=== PATIENT | male | born 1965 | race Caucasian/White ===

== ENCOUNTER 2024-05-20 17:11 | Inpatient (IN) | payer MEDICARE, SELFPAY ==
[2024-05-20 12:26] VITALS: BP 147/102
[2024-05-20 12:59] LABS: % Eosinophils 2.9 % (0-6); % Immature Granulocytes 0.2 % (0-0.5); % Lymphocytes 21.1 % (20.5-51.1); % Monocytes 7.4 % (1.7-9.3); % Neutrophils 67.4 % (42.2-75.2); Absolute Basophils 0.1 10^3/uL (0-0.2); Absolute Eosinophils 0.3 10^3/uL (0-0.7); Absolute Lymphocytes 2.1 10^3/uL (1.2-3.4); Absolute Monocytes 0.7 10^3/uL (0.1-0.6); Absolute Neutrophils 6.7 10^3/uL (1.4-6.5); Hematocrit 46.9 % (39.0-52.0); Hemoglobin 15.7 g/dL (13.0-18.0); Mean Corp Hgb Conc. 33.5 g/dL (33.0-37.0); Mean Corpuscular Hgb 28.4 pg (27.0-31.0); Mean Platelet Volume 9.3 fL (7.4-10.4); Nucleated Red Blood Cells % 0 % (-); Platelet Count 291 10^3/uL (130-400); Red Blood Cell Count 5.52 10^6/uL (4.70-6.10); Red Cell Dist. Width 12.9 % (11.5-14.5)
[2024-05-20 13:11] LABS: ALT (SGPT) 31 U/L (0-50); AST (SGOT) 28 U/L (17-59); Albumin 4.5 g/dl (3.5-5.0); Alkaline Phosphatase 88 U/L (38-126); Blood Urea Nitrogen 16 mg/dl (9-20); Calcium 10.1 mg/dl (8.4-10.2); Carbon Dioxide 35 mmol/L (22-30); Chloride 96 mmol/L (98-107); Glucose 112 mg/dl (70-99); Potassium 5.1 mmol/L (3.5-5.1); Sodium 138 mmol/L (135-145); Total Bilirubin 0.6 mg/dl (0.2-1.3); eGFR > 60.00
[2024-05-20 13:21] LABS: Troponin I < 0.012 ng/ml
[2024-05-20 13:29] VITALS: BP 173/120
[2024-05-20 14:06] VITALS: BP 160/117
--- NOTE | 2024-05-20 14:28 | ED.GENMED ---
History of Present Illness
General
Chief Complaint: Breathing Problem
Source: patient
Exam Limitations: none
Time Seen by Provider: 05/20/24 13:40
Nursing documentation reviewed up to this point in time: agreed with
History of Present Illness
History of Present Illness:
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
h pylori
does not go to doctor's
says he has had episodes of dyspnea off and on with exertion since 2020
he has only seen someone once, it sounds like, and did not find cause for symptoms
pt hd to be redirected several times to discuss why he decided to come today but ultimately he is here bcause over the past 10 days specifically he is extremely winded with exertion
he has not been able to lay flat at night
he used to smoke cigarettes but quit in 2018
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
recovers aftre resting
he has no wheezing, cough, fever, painful breathing
he has not had recen tillness
he has had about 20 pound weight loss in 18 mo, sounds like this is mostly unintentional
pt uses a lot of herbs and eastern medicine
Phy Exam
Physical Exam
Physical Exam:
GENERAL: Alert , in no apparent distress thin
EYE: pupils equal and reactive
NECK: Supple
ENT: o/p clr, mmm.
CARDIAC: Regular rate and rhythm .
LUNGS: Initially clear, no tachypnea, speaking in full sentences, no cough
after ambulation trial patient was moderately dyspneic on conversation and wheezing with diminished airflow
ABDOMEN: Soft, without focal tenderness, no r/g, no cvat, normal bowel sounds
NEUROLOGICAL: Alert and oriented, no focal neuro deficits
SKIN: Warm and dry, skin intact.
MUSCULOSKELETAL: No edema, well perfused. neg vishal's sign
PSYCH: Normal and appropriate interaction.
Scores
Heart Failure Risk
Heart Failure Risk Score: Not Applicable
Course
Orders/Labs/Results
Orders:
Orders
05/20/24 Breakfast
Regular
At Your Request: Full Participation
Does patient need a safe tray?: No
05/20/24 12:21
Electrocardiogram (*1) Urgent
Reason for Study: Shortness of Breath
EKG- Treatment ONCE
05/20/24 12:42
Complete Blood Count/With Diff Urgent
Comprehensive Metabolic Panel Urgent
NT-proBNP Urgent
Comment: ADD ON
Troponin I Urgent
05/20/24 12:52
CR Chest - 2 Views Urgent
Comment:
Reason For Exam: soob
05/20/24 13:54
Add On- LAB Urgent
Tests Added?: BNP
05/20/24 14:12
Peak Flow Rate [RESP] Urgent
Quantity: 1
05/20/24 14:20
Ipratropium/Albuterol Sulfate [Duoneb] 3 ml INH R NOW STA
05/20/24 14:54
Dexamethasone Sod Phosphate [Decadron] 10 mg IV NOW STA
05/20/24 15:31
Ipratropium/Albuterol Sulfate [Duoneb] 3 ml INH R NOW STA
05/20/24 16:16
Admit/Transfer Patient As Directed
Co-Sign Provider:
Level of Care: Inpatient admission
Assign to:: Medical/Surgical
Physician / Group: home
Diagnosis: COPD exacerbation
Reason for Hospitalization: copd exacerbation
Expected length of stay greater than two midnights?: Yes
ELOS- Estimated Length of Stay in days: 3
I certify the patient meets the requirements for IP care: Yes
Code Status As Directed
Resuscitation Status: Full Code
PRN Pain Medication Management As Directed
May give lesser potent ordered pain med per pt: Yes
preference::
Protocol:: Medication orders for pain may be administered in a
manner that supports deferring to patient preference
when the pt is:
- Requesting an ordered lesser potent pain medication.
Least to most potent pain medications are defined
as: acetaminophen < NSAID < tramadol < opioids
(morphine, oxycodone, hydromorphone).
- Requesting a lesser dose of the same medication IF
ORDERED.
- Requesting a less intrusive route of administration
if both routes are prescribed by the provider (PO <
IV).
05/20/24 16:35
PULMONARY CONSULT Routine
Consulting Provider: Mitch Boswell
Was physician already notified: Yes
05/20/24 17:59
Acetaminophen [Tylenol] 650 mg PO Q4HPRN PRN
HydrALAZINE [Apresoline] 5 mg IV Q6HPRN PRN
Ipratropium/Albuterol Sulfate [Duoneb] 3 ml INH R Q4HPRN PRN
05/20/24 17:59
Activity As Directed
Activity Level: As Tolerated
Intake/ Output As Directed
Frequency: Per unit guidelines
Vital Signs As Directed
Frequency: Per unit guidelines
Copd Education [RESP] Routine
DX Deep Vein Thrombosis Video Routine
05/20/24 18:00
Enoxaparin Sodium [Lovenox] 40 mg SC QPM
05/20/24 20:00
Ipratropium/Albuterol Sulfate [Duoneb] 3 ml INH R QID
05/20/24 23:00
Dexamethasone Sod Phosphate [Decadron] 4 mg IV Q8H
Abnormal Lab Results
05/20/24
12:42
Absolute Neuts (auto) 6.7 H 10^3/uL
(1.4-6.5)
Absolute Monos (auto) 0.7 H 10^3/uL
(0.1-0.6)
Chloride 96 L mmol/L
(98-107)
Carbon Dioxide 35 H mmol/L
(22-30)
Glucose 112 H mg/dl
(70-99)
05/20/24 12:42
05/20/24 12:42
Vital Signs
Initial and Last Documented VS:
Initial Vital Signs
Temp Pulse Resp BP Pulse Ox
98.3 F 106 18 147/102 98
05/20/24 12:26 05/20/24 12:26 05/20/24 12:26 05/20/24 12:26 05/20/24 12:26
Last Documented Vital Signs
Temp Pulse Resp BP Pulse Ox
98 F 104 16 145/82 93
05/21/24 07:15 05/21/24 11:24 05/21/24 11:24 05/21/24 07:15 05/21/24 11:24
MDM/Problems Addressed
Differential Diagnosis Includes:
copd, chf
MDM/Problems Addressed:
room [facility] is [facility]
58 y/o M
legally blind
doesn't have PCP
10 days HOWELL, PND, cannot exert self without stopping
no dx of COPD; former smoker
looks like COPD
hypertesnive 160/100 but not hypoxic at rest, looks well
peak flow diminished 150 pre-treatment; post was 200
ambulated pt after neb and steroids and he became tachypneic and dyspneic and wheezy; getting 2nd treatment;
*Critical Care Note
Total Time (30-74mins, 75-104mins- exclusive of procedures): Not Applicable
ED Attending Note
-
Portions of this chart may have been created with voice recognition software.� Occasional wrong word or��sound alike� substitutions may have occurred due to the inherent limitations of voice recognition software.
Discharge Plan
Departure
Patient Disposition: Admit
Date of Disposition: 05/20/24
Time of Disposition: 15:31
Admit to: Med/Surg and Telemetry
Presentation/result/management discussed w/ accepting MD/DO: Hospitalist
Condition: Fair
Covid-19: Not Applicable
Discharge Problem:
COPD (chronic obstructive pulmonary disease)
Interventions
Interventions:
*Risk Screen - Suicide Last Done: 05/20/24 12:26
*General Assessment Last Done: 05/20/24 12:26
*Neglect/Abuse Screening Last Done: 05/20/24 12:26
*ED COVID-19 Vaccine History Last Done: 05/20/24 18:09
*Nursing Disposition Last Done: 05/20/24 18:01
ED- Cardiac Assessment Last Done: 05/20/24 13:30
ED- Pulmonary Assessment Last Done: 05/20/24 13:30
Discharge Date and Time
Discharge Date/Time: 05/20/24 18:01
[2024-05-20 14:35] LABS: NT-proBNP 39.8 pg/ml
[2024-05-20] MEDS: DUONEB 3 ML INH ×3 (14:40→19:54)
[2024-05-20 15:00] VITALS: BP 144/105
--- NOTE | 2024-05-20 15:55 | HPS.HSE ---
Addendum entered and electronically signed by Blair Siddiqi DO 05/20/24 17:46:
Gen-AAOx3, NAD
HEENT-NC, AT, anicteric, clear oral mm
Neck-supple
CV-reg, no M, +S1/S2
Lungs-clear B/L
Abd-soft, NT, ND
Musculoskeletal-no edema, no deformity
Skin-warm and dry
Neuro-grossly non-focal
Psych-calm, cooperative
Mr. 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 pylori (reportedly treated 2014 x 2, no follow-up), and [id number] former smoker (quit 25 years ago) who presented with progressively
worsening shortness of breath for many years but with significant worsening of symptoms over the past 10 days prior to arrival. He reports having never been evaluated by membership assistant. He also reports approximate 20 pound weight loss in the past
18 months which is unintentional although he does try to work out and stay fit. 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 He has a twin
brother who also has blindness due to Stargardt's disease. 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 He reports poor
medical follow-up due to insurance issues and because he has moved around so frequently.
In the ED, he was found to be bronchospastic and hypertensive. He was not hypoxic. Chest imaging showed hyperinflated lungs. Labs were remarkable for elevated serum bicarb consistent with suspected undiagnosed COPD. He was given steroids and
nebulizer treatments. He has been admitted for further evaluation and management of bronchospasm likely due to undiagnosed COPD.
Bronchospasm:
-Suspect undiagnosed COPD continue scheduled steroids and nebulizer treatments
-Additional nebulizers as needed
-Consult to pulmonology
Hypertension:
-Not on antihypertensive regimen as an outpatient
-If persistently hypertensive after controlling respiratory symptoms we will consider adding blood pressure medications
CODE STATUS: Full code
Original Note:
Family Physician
-
Family Physician: Simone Bartlett
Chief Complaint
-
sob
History of Present Illness
58 y/o legally blind,h pylori,Stargardt disease,macular degeneration presented to us with worsening of sob for past ten days. patient stated HOWELL, as well as orthopnea. patient can only lay on his left side to sleep. denied cough, fever, chills,
congestion. patient stated mid gastric, under ribs pain. complained of upper back pain. his neck has been bothering him recently.he has had about 20 pound weight loss in 18 mo, sounds like this is mostly unintentional but his oral intake has been
decreased. Patient denied headache or dizzy or syncope. Patient denied any abdominal pain, nausea, vomiting or diarrhea. Patient denied dysuria or hematuria.
Chest x-ray with COPD. Patient received nebulizer treatment and Decadron in ER. Admitted for further management
Medical History
Past Medical History
Past Medical History: Reports Other
Additional Past Medical History:
H. pylori
Broken jar
Legally blind
Stargardt disease
Macular degeneration
Past Surgical History: Reports Other
Additional Past Surgical History:
History of left hip surgery for fatty removal
Social History
Tobacco: Former Smoker
Alcohol: None
Drug: None
Personal: Single
Living: With Family
Family History
Family History: Not pertinent
Allergies / Home Medications
Allergies reflects when Allergies were last updated in [employer].
Home Medications with original date entered in [employer]
Allergy/Medication List:
Home Medications Table - record
�Medication �Instructions �Recorded �Confirmed
epinephrine 0.125 mg/actuation 1 puff inhalation R HSPRN PRN sob 05/20/24 05/20/24
aerosol inhaler (Primatene Mist)
ibuprofen 200 mg tablet 200 mg PO Q6HPRN PRN mild 05/20/24 05/20/24
pain/fever
Review of Systems
-
Constitutional: Reports No Symptoms
EENT: Reports No Symptoms
Respiratory: Reports Trouble Breathing
Cardiac: Reports No Symptoms
Abdomen/GI: Reports No Symptoms
: Reports No Symptoms
Musculoskeletal: Reports No Symptoms
Skin: Reports No Symptoms
Neurological: Reports No Symptoms
Endocrine: Reports No Symptoms
Hematologic/Lymphatic: Reports No Symptoms
Psych: Reports No Symptoms
Physical Exam
Vital Signs
Vital Signs
Temp Pulse Resp BP Pulse Ox
98.3 F 101 16 160/117 96
05/20/24 12:26 05/20/24 14:30 05/20/24 14:30 05/20/24 14:06 05/20/24 14:30
Physical Exam
General: Well Developed, Well Nourished and No Apparent Distress
HEENT: NormoCephalic, Moist mucous membranes and Atraumatic
Respiratory: Clear
Cardiac: S1/S2 and Regular Rhythm; No Murmur or Rub
GI: Soft, Non Tender, Non Distended and Normal Bowel Sounds; No Organomegaly
Rectal: Deferred by Provider
Musculoskeletal: No Clubbing, No Cyanosis and No Edema
Skin: No Rash
Neuro: AO x 3 and Nonfocal/grossly intact
Psych: Calm
Laboratory Results
-
05/20/24 12:42
05/20/24 12:42
Laboratory Results
Total Bilirubin 0.6 mg/dl (0.2-1.3) 05/20/24 12:42
AST 28 U/L (17-59) 05/20/24 12:42
ALT 31 U/L (0-50) 05/20/24 12:42
Alkaline Phosphatase 88 U/L (38-126) 05/20/24 12:42
Troponin I < 0.012 ng/ml 05/20/24 12:42
Data Reviewed
-
Diagnostic Radiology: Report Reviewed by me
Lab Data: Labs Reviewed by me
Impression/Plan
-
# Dyspneic on exertion likely COPD exacerbation
-Chest x-ray with no focal airspace disease or pleural effusion. Hyperexpanded lungs which can be associated with air trapping/COPD
-IV steroids
-Nebs as needed short of breath and wheezing
-Consider supplemental oxygen to keep sat greater than 92
-Wean as tolerated
#weight loss likely from Cachexia from COPD
-encourage oral intake
# Hypertensive emergency
-will add hydralazine prn
# History of Stargardt disease
#legally blind
#DVT Prophylaxis
-Lovenox
#CODE status
-full code
[2024-05-20] MEDS: DECADRON 10 MG IV (16:00)
--- NOTE | 2024-05-20 17:12 | CON.PUL ---
Consultation
Consultation Request
Date/Time Consultation Requested: 05/20/2024
Date/Time Consultation Performed: 05/20/2024
Requesting Provider: Kiley Cartwright
Performing Provider: Dr. Mitch Sandoval
Reason for Consultation: Acute exacerbation of COPD
Medical History
-
History of Present Illness:
58-year-old legally blind with history of H. pylori, Stargardt's disease, macular degeneration presented to us with worsening shortness of breath for the past 10 days. Patient reports orthopnea and shortness of breath with exertion. Denies cough,
fevers, chills, congestion. He did report some upper back pain. He does report 20 pound weight loss for the last 18 months.
Oral intake has decreased.
Patient is a former smoker
Chest x-ray showed hyperinflation.
Admitted through the hospitalist service for possible COPD exacerbation. We were consulted on 05/20/2024 from the emergency room for evaluation of this patient.
Patient does report progressive shortness of breath over the last 2 years. Slowly worsening. Over the last 2 days has been worse. Dyspneic with any activity.
He is legally blind. Used to exercise. Has been losing weight.
He does not have a formal diagnosis of COPD. He quit smoking years ago. He has at least [id number] history.
Past Medical History
Past Medical History: Other (See assessment and plan)
Social History
Tobacco: Former Smoker
Alcohol: None
Drug: None
Personal: Single
Living: With Family
Family History
Family History: Reviewed & Not Pertinent
Allergies / Home Medications
Allergies
Allergy/AdvReac Type Severity Reaction Status Date / Time
No Known Allergies Allergy Unverified 05/20/24 12:26
Home Medications
�Medication �Instructions �Recorded �Confirmed �Last Taken �Type
epinephrine 0.125 mg/actuation 1 puff inhalation R HSPRN PRN sob 05/20/24 05/20/24 Unknown History
aerosol inhaler (Primatene Mist)
ibuprofen 200 mg tablet 200 mg PO Q6HPRN PRN mild 05/20/24 05/20/24 Unknown History
pain/fever
Review of Systems
-
History Source: Patient
All other systems: Negative unless noted
Vitals / Labs / Diagnostic Testing
Vital Signs
Temp Pulse Resp BP Pulse Ox
98.3 F 89 15 144/105 94
05/20/24 12:26 05/20/24 15:45 05/20/24 15:45 05/20/24 15:00 05/20/24 15:45
Lab Data
05/20/24 12:42
05/20/24 12:42
Diagnostic Testing:
Physical Exam
-
HEENT: Normocephalic
Cardiovascular: S1/S2
Respiratory: Clear and Non-Labored Respirations
GI: Soft and Non Distended
Neurology: Awake, Oriented and No Motor Deficits
Skin: Warm
General: Comfortable
Assessment
-
58-year-old man with past medical history noted, former smoker. Legally blind. Came to the hospital complaining of shortness of breath without any other associated symptoms. Does report unintentional weight loss. Denies cough, wheezing or phlegm
production I was consulted from the emergency room a on 05/20/2024
Exertional dyspnea-progressive over the last 2 years-worse the last 10 days. Associated with ?orthopnea.
Chest x-ray with hyperinflation
Negative troponin
Negative proBNP
EKG: Normal sinus rhythm. Nonspecific T wave abnormality.
COPD cannot be ruled out-no formal diagnosis-no PFT available-former smoker.
Not wheezing on exam
Conditions present prior admission
Legally blind
H. pylori
Stargardt's disease
Macular degeneration
History of left hip surgery
Former smoker quit years ago [id number] history
Assessment and plan:
Exertional dyspnea of unclear etiology: Certainly not significantly bronchospastic but has significant hyperinflation on chest x-ray.
[id number] history of smoking
Patient does report progressive exertional dyspnea over 1 to 2 years. Worse in the last 10 days.
Very occasional wheezing.
No significant phlegm production
No formal COPD diagnosis
He has also been losing weight. Due to decreased appetite as well as muscle mass.
Interestingly described orthopnea for the last 10 days.
-
Diminished breath sounds bilaterally
Okay to start treating for possible COPD exacerbation DuoNebs and IV corticosteroids.
Currently on room air
Not tachycardic
Slightly hypertensive
-
All cardiac biomarkers negative
EKG nonischemic
Obtain echocardiogram due to orthopnea.
-
If there is response to above then we will obtain a spirometry at some point and discharged on possibly dual bronchodilator therapy with outpatient pulmonary evaluation.
He is a former smoker.
Does not have a formal COPD diagnosis.
-
Will follow-up
[2024-05-20 18:11] VITALS: BP 145/84
[2024-05-20 18:12] VITALS: BMI 15.7
[2024-05-20] MEDS: LOVENOX 40 MG SC (18:25)
[2024-05-20] MEDS: DECADRON 4 MG IV (23:00)
[2024-05-20 23:55] VITALS: BP 133/86
[2024-05-21] MEDS: DECADRON 4 MG IV ×3 (06:01→23:06)
[2024-05-21 07:15] VITALS: BP 145/82
[2024-05-21] MEDS: DUONEB 3 ML INH ×4 (07:24→20:25)
--- NOTE | 2024-05-21 14:39 | W.PN.HOSP.TC ---
Today's Communication/Plan
-
Assessment / Plan
Assessment / Plan
Gen-AAOx3, NAD
HEENT-NC, AT, anicteric, clear oral mm
Neck-supple
CV-reg, no M, +S1/S2
Lungs-clear B/L
Abd-soft, NT, ND
Musculoskeletal-no edema, no deformity
Skin-warm and dry
Neuro-grossly non-focal
Psych-calm, cooperative
Mr. 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 pylori (reportedly treated 2014 x 2, no follow-up), and [id number] former smoker (quit 25 years ago) who presented with progressively
worsening shortness of breath for many years but with significant worsening of symptoms over the past 10 days prior to arrival. He reports having never been evaluated by specialist employee labor relations. He also reports approximate 20 pound weight loss in the past
18 months which is unintentional although he does try to work out and stay fit. 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 He has a twin
brother who also has blindness due to Stargardt's disease. 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 He reports poor
medical follow-up due to insurance issues and because he has moved around so frequently.
In the ED, he was found to be bronchospastic and hypertensive. He was not hypoxic. Chest imaging showed hyperinflated lungs. Labs were remarkable for elevated serum bicarb consistent with suspected undiagnosed COPD. He was given steroids and
nebulizer treatments. He has been admitted for further evaluation and management of bronchospasm likely due to undiagnosed COPD.
Bronchospasm:
-Resolved with steroids and nebulizer treatments
-Suspect undiagnosed COPD
-Continue scheduled steroids and nebulizer treatments
-Appreciate pulmonology input
-Will obtain echocardiogram to evaluate for possible cardiac etiologies of patient's presenting dyspnea
Hypertension:
-Not on antihypertensive regimen as an outpatient
-If persistently hypertensive after controlling respiratory symptoms we will consider adding blood pressure medications
Malnutrition:
-Appears moderate protein calorie malnutrition
-BMI 15.7
-Dietary consult
-Patient reports significant unintentional weight loss and epigastric pain, will check CT chest abdomen pelvis
CODE STATUS: Full code
Anticipated Discharge: 24 - 48 hours
Subjective/Interval History
-
Date of Service: May 21, 2024
Patient was seen and examined at bedside this morning. Breathing comfortably and bronchospasm has resolved. Still remains anxious about his weight loss and dyspnea.
Objective Data
-
Vital Signs:
Vital Signs
Temp Pulse Resp BP Pulse Ox
98 F 104 16 145/82 93
05/21/24 07:15 05/21/24 11:24 05/21/24 11:24 05/21/24 07:15 05/21/24 11:24
Review of Systems
-
History Source: Patient
All other systems: Reviewed and negative
Respiratory: Reports Trouble Breathing
Physical Exam
-
General: No Apparent Distress
[2024-05-21 15:10] VITALS: BP 131/74
[2024-05-21] MEDS: FLUSH (NSS) 2 FLUSH IV (15:31)
[2024-05-21] MEDS: OMNIPAQUE 50 ML PO (16:21)
--- NOTE | 2024-05-21 16:40 | W.PN.PUL3 ---
Today's Communication / Plan
-
Continue treatment for a COPD exacerbation (bullous emphysema seen on CT chest from today, hence diagnosing him with COPD given his exertional shortness of breath is appropriate)
Continue with DuoNebs QID with prn doses in between for breakthrough symptoms
As long as resting SaO2 is >95% on room air, then no need for home O2 assessment prior to discharge
Up OOB as tolerated
Continue to monitor improvement while on systemic steroids and nebulizers, otherwise he should obtain an echo on Thursday and he should not go home tomorrow
He should be discharged home on a LAMA/LABA (Anoro vs Stiolto)
Outpatient pulmonary office follow-up will be arranged
Assessment
-
58-year-old man with past medical history noted, former smoker. Legally blind. Came to the hospital complaining of shortness of breath without any other associated symptoms. Does report unintentional weight loss. Denies cough, wheezing or phlegm
production I was consulted from the emergency room a on 05/20/2024
Exertional dyspnea-progressive over the last 2 years-worse the last 10 days. Due to COPD with bullous emphysema seen on CT chest from 05/21/2024
Chest x-ray with hyperinflation
Negative troponin
Negative proBNP
EKG: Normal sinus rhythm. Nonspecific T wave abnormality.
Suspected COPDt-no formal diagnosis-no PFT available-former smoker.
Not wheezing on exam
Conditions present prior admission
Legally blind
H. pylori
Stargardt's disease
Macular degeneration
History of left hip surgery
Former smoker quit years ago [id number] history
Assessment and plan:
Exertional dyspnea is due to COPD/bullous emphysema
[id number] history of smoking
Patient does report progressive exertional dyspnea over 1 to 2 years. Worse in the last 10 days.
Very occasional wheezing.
No significant phlegm production
No formal COPD diagnosis - will need PFTs as an outpatient
He has also been losing weight. Due to decreased appetite as well as muscle mass.
Interestingly described orthopnea for the last 10 days ---> no evidence of CHF, and proBNP was WNL at 39.8 on 05/20/2024. Orthopnea is likely due to significant COPD
-
Diminished breath sounds bilaterally
Continue treatment for a COPD exacerbation, currently on Decadron 4 mg IV q8hr
Wean down Decadron as he clinically improves --> can start weaning down tomorrow to 4 mg IV q12hr
Continue with DuoNebs QID with prn doses for breakthrough symptoms
Currently on room air
Not tachycardic
Slightly hypertensive
-
All cardiac biomarkers negative
EKG nonischemic
Obtain echocardiogram due to orthopnea --> if he does not want to wait until Thursday to get this and wants to leave tomorrow (05/22), then an echo can be done as an outpatient
-
If there is response to above then we will obtain a spirometry at some point and discharge on a LAMA/LABA with outpatient pulmonary evaluation with full PFTs and 6MWT
He is a former smoker.
-
Will follow-up
Total time spent today was 38 minutes for this encounter. Time includes reviewing laboratory test/imaging results, reviewing pertinent medical records, obtaining and reviewing medical history, performing an appropriate exam, ordering medications,
tests and procedures. Time also includes documentation of this encounter, coordinating patient care and communicating with other healthcare professionals. Total time does not include separately billed tests performed on this date of service.
Subjective Data
-
Date of Service:
Date of Service: May 21, 2024
Chief Complaint: Pulmonary Follow Up
Subjective:
Patient was seen earlier today (late note entry). He is currently on room air breathing comfortably, saturating 96%. He has no shortness of breath at rest but he does feel short of breath with activity. Denies night sweats or phlegm production.
Feels that the neck muscles are tight. He also gets some tightness/spasms in his lower extremities, and he believes that this is due to his suspected COPD. He currently denies chest pain, DUNNE, nausea, fevers or chills.
Review of Systems
General: Other (Negative unless mentioned above)
Objective Data
Data Reviewed
Vital Signs / I&O / Oxygen:
Vital Signs
Temp Pulse Resp BP Pulse Ox
98 F 95 16 145/82 95
05/21/24 07:15 05/21/24 07:27 05/21/24 07:27 05/21/24 07:15 05/21/24 07:27
SaO2 95
Nasal Cannula flow liters per 0
minute
Physical Exam
General: Respiratory Distress (negative), Comfortable, Chills (negative) and Sweats (negative)
HEENT: Normocephalic and Anicteric
Cardiovascular: S1-S2 and Peripheral Edema (negative)
Respiratory: Wheeze (negative), Crackles (negative), Rhonchi (negative), Non-Labored Respirations and Other (Diminished breath sounds bilaterally)
GI: Soft, Non Distended, Non Tender and Normal Bowel Sounds
Neurology: AO x 3 and Tremors (negative)
Skin: Warm, Dry, Cyanosis (negative) and Jaundice (negative)
Labs/Micro/Reports
Lab Data
05/20/24 12:42
05/20/24 12:42
[2024-05-21] MEDS: LOVENOX 40 MG SC (18:05)
[2024-05-21 22:55] VITALS: BP 126/85
[2024-05-22] MEDS: DECADRON 4 MG IV (06:13)
[2024-05-22 07:10] VITALS: BP 134/78
[2024-05-22] MEDS: DUONEB 3 ML INH ×2 (07:37→11:11)
[2024-05-22 10:12] VITALS: O2SAT 93; O2SAT 95
--- NOTE | 2024-05-22 11:36 | W.DCSUMMARY ---
Discharge Summary
Discharge Data
Date of Admission: 05/20/24
Date of Discharge: 05/22/24
-
Pending Results: No
Hospital Course
Mr. 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 pylori (reportedly treated 2014 x 2, no follow-up), and [id number] former smoker (quit 25 years ago) who presented with progressively
worsening shortness of breath for many years but with significant worsening of symptoms over the past 10 days prior to arrival. He reports having never been evaluated by customer service analyst. He also reports approximate 20 pound weight loss in the past
18 months which is unintentional although he does try to work out and stay fit. 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 He has a twin
brother who also has blindness due to Stargardt's disease. When he worked construction in [place], he reports often working in poorly ventilated areas with dense particulate matter in the air all while not wearing a mask. He reports poor
medical follow-up due to insurance issues and because he has moved around so frequently.
In the ED, he was found to be bronchospastic and hypertensive. He was not hypoxic. Chest imaging showed hyperinflated lungs. Labs were remarkable for elevated serum bicarb consistent with suspected undiagnosed COPD. He was given steroids and
nebulizer treatments. He was admitted for further evaluation and management of bronchospasm likely due to undiagnosed COPD. His bronchospasm improved with steroids and nebulizer treatments. CT imaging of his chest showed emphysematous disease.
His pulse ox remained stable around 95% on room air even with exertion. He was evaluated by pulmonology who agreed with continuing the above-mentioned plan and recommended discharging on a LAMA/LABA once medically stable with outpatient pulmonology
follow-up for further evaluation and management. An echocardiogram was initially being considered however not indicated at this time due to high suspicion for pulmonary etiology of his presenting symptoms and the low suspicion for cardiac etiology.
He could get an echocardiogram at some point in the future in the outpatient setting if his symptoms persist despite treatment of respiratory pathology.
Also of note, he appeared malnourished and presented with a BMI of 15.7. There was no overt evidence of malignancy on CT chest abdomen pelvis, although this was obtained without oral contrast. It is likely that he has moderate protein malnutrition
due to mismatch between energy intake and demand in the setting of previously undiagnosed and unmanaged COPD/emphysema. He should follow-up with his primary care physician for ongoing management in general, including monitoring of his nutritional
status and evaluation of his unintentional weight loss. He has never had a screening colonoscopy and is due for one as he is greater than 45 years of age. His blood pressure was initially elevated however has been well-controlled with improvement
in his respiratory symptoms. He will be discharged to home with prescriptions for a steroid taper and LABA/LAMA. He will need to follow-up in the outpatient setting with a customer service analyst and his PCP.
Gen-AAOx3, NAD
HEENT-NC, AT, anicteric, clear oral mm
Neck-supple
CV-reg, no M, +S1/S2
Lungs-clear B/L
Abd-soft, NT, ND
Musculoskeletal-no edema, no deformity
Skin-warm and dry
Neuro-grossly non-focal
Psych-calm, cooperative
Discharge Plan
-
Patient Disposition: Home (Routine Discharge)
Discharge Diagnosis/Procedures: Shortness of breath, suspected undiagnosed COPD/emphysema
Diet: No restrictions
Activity: As tolerated
Activity Restrictions/Additional Instructions:
Mr. 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 pylori (reportedly treated 2014 x 2, no follow-up), and 24-[id number]-oxzh former smoker (quit 25 years ago) who presented with progressively
worsening shortness of breath for many years but with significant worsening of symptoms over the past 10 days prior to arrival. He reports having never been evaluated by customer service analyst. He also reports approximate 20 pound weight loss in the past
18 months which is unintentional although he does try to work out and stay fit. 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 He has a twin
brother who also has blindness due to Stargardt's disease. When he worked construction in [place], he reports often working in poorly ventilated areas with dense particulate matter in the air all while not wearing a mask. He reports poor
medical follow-up due to insurance issues and because he has moved around so frequently.
In the ED, he was found to be bronchospastic and hypertensive. He was not hypoxic. Chest imaging showed hyperinflated lungs. Labs were remarkable for elevated serum bicarb consistent with suspected undiagnosed COPD. He was given steroids and
nebulizer treatments. He was admitted for further evaluation and management of bronchospasm likely due to undiagnosed COPD. His bronchospasm improved with steroids and nebulizer treatments. CT imaging of his chest showed emphysematous disease.
His pulse ox remained stable around 95% on room air even with exertion. He was evaluated by pulmonology who agreed with continuing the above-mentioned plan and recommended discharging on a LAMA/LABA once medically stable with outpatient pulmonology
follow-up for further evaluation and management. An echocardiogram was initially being considered however not indicated at this time due to high suspicion for pulmonary etiology of his presenting symptoms and the low suspicion for cardiac etiology.
He could get an echocardiogram at some point in the future in the outpatient setting if his symptoms persist despite treatment of respiratory pathology.
Also of note, he appeared malnourished and presented with a BMI of 15.7. There was no overt evidence of malignancy on CT chest abdomen pelvis, although this was obtained without oral contrast. It is likely that he has moderate protein malnutrition
due to mismatch between energy intake and demand in the setting of previously undiagnosed and unmanaged COPD/emphysema. He should follow-up with his primary care physician for ongoing management in general, including monitoring of his nutritional
status and evaluation of his unintentional weight loss. He has never had a screening colonoscopy and is due for one as he is greater than 47 years of age. His blood pressure was initially elevated however has been well-controlled with improvement
in his respiratory symptoms. He will be discharged to home with prescriptions for a steroid taper and LABA/LAMA. He will need to follow-up in the outpatient setting with a customer service analyst and his PCP.
Referrals:
Mitch Boswell MD [Active] -
Simone Bartlett MD [Family Provider] -
Prescriptions:
New
Anoro Ellipta 62.5-25 mcg/actuation blister with device
1 inh inhalation DAILY Qty: 60 0RF
methylprednisolone [Medrol ([facility])] 4 mg tablets,dose pack
See Rx Instructions .ROUTE .COMPLEX Qty: 21 0RF
Rx Instructions:
for 6 days
Continued
ibuprofen 200 mg Tablet
200 mg PO Q6HPRN PRN (Reason: mild pain/fever)
Primatene Mist 0.125 mg/actuation Hfa Aerosol Inhaler
1 puff INHALATION R HSPRN PRN (Reason: sob)
Discharge Orders:
Discharge Patient (As Directed); Ordered 05/22/24
Ordered By: Blair Siddiqi
Discharge Date and Time
Print Language: GUINEAN
--- NOTE | 2024-05-22 12:12 | CM ---
Pt for d/c today. Initial assessment completed. Patient is a 58-year-old male with a medical history of blindness (secondary to Stargardt disease), H. pylori (reportedly treated 2014 x 2, no follow-up), and 41-[id number]-inci former smoker (quit 25 years
ago) who presented with progressively worsening shortness of breath for many years but with significant worsening of symptoms over the past 10 days prior to arrival.
Patient reports he resides w/ his aunt in a split level home- no steps to enter through the garage, 12 steps to the second level of the home where he resides. Patient is independent w/ ambulating, patient states he has a walking stick for blindness
but uses it for the purpose to alert other people that he is blind. Denies SNF/VN/PT hx. No current OP or home services at this time. 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
PCP: Dr. Simone Bartlett. Patient would like to explore another PCP
Pharmacy: [facility]
CM consulted to assist patient w/ making OP follow up appointments. Patient is capable of making appointments, he shared he is able to read, review emails, and see w/ magnifying glass.
Per patient, his aunt will transport him home.
IMM reviewed, pt given copy, copy placed on chart
Plan: Home; no needs
--- NOTE | 2024-05-22 12:58 | W.PN.PUL3 ---
Today's Communication / Plan
-
Continue treatment for a COPD exacerbation (bullous emphysema seen on CT chest from today, hence diagnosing him with COPD given his exertional shortness of breath is appropriate)
While hospitalized, continue with DuoNebs QID with prn doses in between for breakthrough symptoms
As long as resting SaO2 is >95% on room air, then no need for home O2 assessment prior to discharge
Up OOB as tolerated
Patient is adamant about going home. He is stable for discharge from pulmonary perspective. Outpatient pulmonary office follow-up will be arranged. Please discharge home on Anoro with prn albuterol and a prednisone taper.
No additional recommendations at this time. Pulmonary service will now sign off. Please reconsult if there are any additional questions/concerns, or if patient's respiratory status deteriorates.
Assessment
-
58-year-old man with past medical history noted, former smoker. Legally blind. Came to the hospital complaining of shortness of breath without any other associated symptoms. Does report unintentional weight loss. Denies cough, wheezing or phlegm
production I was consulted from the emergency room a on 05/20/2024
Exertional dyspnea-progressive over the last 2 years-worse the last 10 days. Due to COPD with bullous emphysema seen on CT chest from 05/21/2024
Chest x-ray with hyperinflation
Negative troponin
Negative proBNP
EKG: Normal sinus rhythm. Nonspecific T wave abnormality.
Suspected COPDt-no formal diagnosis-no PFT available-former smoker.
Not wheezing on exam
Conditions present prior admission
Legally blind
H. pylori
Stargardt's disease
Macular degeneration
History of left hip surgery
Former smoker quit years ago [id number]-ebqs history
Assessment and plan:
Exertional dyspnea is due to COPD/bullous emphysema
52-ndbh-kate history of smoking
Patient does report progressive exertional dyspnea over 1 to 2 years. Worse in the last 10 days.
Very occasional wheezing.
No significant phlegm production
No formal COPD diagnosis - will need PFTs as an outpatient
He has also been losing weight. Due to decreased appetite as well as muscle mass.
Interestingly described orthopnea for the last 10 days ---> no evidence of CHF, and proBNP was WNL at 39.8 on 05/20/2024. Orthopnea is likely due to significant COPD
-
Diminished breath sounds bilaterally
Continue treatment for a COPD exacerbation, currently on Decadron 4 mg IV q8hr --> send home on prednisone taper, starting at 40 mg daily and reduce by 10 mg every fourth day until off
Wean down Decadron as he clinically improves --> can start weaning down tomorrow to 4 mg IV q12hr
Continue with DuoNebs QID with prn doses for breakthrough symptoms
Send home on LAMA/LABA with Anoro -proper inhaler technique reviewed at bedside
-
All cardiac biomarkers negative
EKG nonischemic
Obtain echocardiogram due to orthopnea --> if he does not want to wait until tomorrow to get this and wants to leave today (05/22), then an echo can be done as an outpatient
-
Outpatient pulmonary office follow-up for PFTs +/-6 MWT
He is a former smoker.
-
Patient is adamant about going home. He is stable for discharge from pulmonary perspective. Outpatient pulmonary office follow-up will be arranged. Please discharge home on Anoro with prn albuterol and a prednisone taper.
No additional recommendations at this time. Pulmonary service will now sign off. Thank you for allowing us to be involved in the care of this patient. Please reconsult if there are any additional questions/concerns, or if patient's respiratory
status deteriorates.
Total time spent today was 27 minutes for this encounter. Time includes reviewing laboratory test/imaging results, reviewing pertinent medical records, obtaining and reviewing medical history, performing an appropriate exam, ordering medications,
tests and procedures. Time also includes documentation of this encounter, coordinating patient care and communicating with other healthcare professionals. Total time does not include separately billed tests performed on this date of service.
Subjective Data
-
Date of Service:
Date of Service: May 22, 2024
Chief Complaint: Pulmonary Follow Up
Subjective:
Patient seen this morning. On room air breathing comfortably. Says he feels better today. Denies chest pain, DUNNE, nausea, fevers or chills.
Review of Systems
General: Other (Negative unless mentioned above)
Objective Data
Data Reviewed
Vital Signs / I&O / Oxygen:
Vital Signs
Temp Pulse Resp BP Pulse Ox
98 F 75 18 134/78 95
05/22/24 07:10 05/22/24 07:45 05/22/24 07:45 05/22/24 07:10 05/22/24 07:45
Intake and Output
05/21/24 05/22/24 05/23/24
06:59 06:59 06:59
Intake Total 1080 / 1080
Output Total 125 / 125
Balance 955 / 955
SaO2 95
Nasal Cannula flow liters per 0
minute
Physical Exam
General: Respiratory Distress (negative), Comfortable, Chills (negative) and Sweats (negative)
HEENT: Normocephalic and Anicteric
Cardiovascular: S1-S2 and Peripheral Edema (negative)
Respiratory: Wheeze (negative), Crackles (Right base), Rhonchi (negative), Non-Labored Respirations and Other (Diminished breath sounds bilaterally)
GI: Soft, Non Distended, Non Tender and Normal Bowel Sounds
Neurology: AO x 3 and Tremors (negative)
Skin: Warm, Dry, Cyanosis (negative) and Jaundice (negative)
Labs/Micro/Reports
Lab Data
05/20/24 12:42
05/20/24 12:42
[2024-05-22 14:25] VITALS: BP 133/79
[2024-05-22] MEDS: DUONEB INH (15:21)
== END 2024-05-22 17:20 | disposition home or self-care (01) | DRG 191 ==
LOC: 4 EAST ACU 17:11
PROVIDERS: Emergency Medicine; ADMITTING PHYSICIAN Internal Medicine; CONSULT PHYSICIAN Internal Medicine Critical Care Medicine; EMERGENCY PHYSICIAN Emergency Medicine; FAMILY PHYSICIAN Family Medicine
DX: J44.1 Chronic obstructive pulmonary disease with (acute) exacerbation (principal); E44.0 Moderate protein-calorie malnutrition; Z68.1 Body mass index [BMI] 19.9 or less, adult; I16.1 Hypertensive emergency; I10 Essential (primary) hypertension; H54.8 Legal blindness, as defined in USA; E88.A Wasting disease (syndrome) due to underlying condition; H35.30 Unspecified macular degeneration; J43.8 Other emphysema; Z87.891 Personal history of nicotine dependence; Z86.19 Personal history of other infectious and parasitic diseases; Z82.1 Family history of blindness and visual loss
CPT/HCPCS: 71046; 71260; 74177; 80053; 83880; 84484; 85025; 93005; 94640; 96374; 99285; Q9967

== ENCOUNTER 2024-06-12 00:50 | Inpatient (IN) | payer MEDICARE, SELFPAY ==
[2024-06-11 18:33] VITALS: BP 146/119
--- NOTE | 2024-06-11 19:38 | EDRN ---
Informed by EDT that brought pt back to room for evaluation blood work was ordered in triage but not collected.
[2024-06-11 19:44] VITALS: BP 150/94
[2024-06-11 19:53] VITALS: BMI 16.1
--- NOTE | 2024-06-11 19:55 | EDRN ---
Pt says he was here 3 weeks ago for sob and diagnosed with emphysema. Pt felt well for 9 days then has been ill for past 9 days. Pt saw board of education secretary on Thursday and had some medications changed. Pt has 'phlegm on my lungs' and says he has been
congest. Thursday pt switched from anoro to brevtry and has noted no change. 'I've been hitting my albuterol like crazy.' Pt felt better on anoro. Pt has had 3 breathing episodes over the past 36 hours which prompted jose's ED visit. Pt has
pressure in middle of his chest. Pt is trying not to cough because 'It becomes a thing at the end of it I cannot breathe and is so bad I can't hit the albuterol. I was panting like a dog out the window.: No abd pain, n/v/c/d, fever/chills,
dizziness, weakness. Pt admits he has been sitting and not moving for days. Cough productive 'a little white foam.'
[2024-06-11 20:07] VITALS: BP 146/100
--- NOTE | 2024-06-11 20:59 | ED.GENMED ---
History of Present Illness
General
Chief Complaint: Breathing Problem
Source: patient
Exam Limitations: none
Time Seen by Provider: 06/11/24 19:57
Nursing documentation reviewed up to this point in time: agreed with
History of Present Illness
History of Present Illness:
PT IS A 58 Y/O m WITH H/O COPD recently diagnosed
seen by pulm (jose juan)
here with exacerbation since last week after he got a URI
low grade temp and cough/cold ymptoms x 4-5 days but the symptoms improved
he happened to see pulm 4 days ago for f/u and was telling the PA that he thought the anoro was drying him out so she switched him to breztri
and since then, he has had epsidoes wehre he is gasping for air and wheezing/tight and can't get his albuterol rescue inhaler to work
he feels ok at the moment but this episode at 130 pm was so severe he thought he was gabriella to
he has moderate amount of chest tighteness as well during that time
no fever/chills recently
no coughing blood
does not have neb machine
thinks it would help him
was tapered off steroids after his admission 05/20-05/22
Past History
Past History
ED Past Medical History: COPD and Other (blind)
ED Past Surgical History: None
Social History
Tobacco: Former smoker
Alcohol: None
Drug: None
Review of Systems
Review of Systems
Allergies reviewed?: Yes
All Other Systems: Not applicable
Phy Exam
Physical Exam
Physical Exam:
GENERAL: Alert , in no apparent distress
EYE: pupils equal and reactive
NECK: Supple
ENT: o/p clr, mmm.
CARDIAC: Regular rate and rhythm .
LUNGS: diminished, faint end exp wheezing; no resp distress; no cough
ABDOMEN: Soft, without focal tenderness, no r/g, no cvat, normal bowel sounds
NEUROLOGICAL: Alert and oriented, no focal neuro deficits
SKIN: Warm and dry, skin intact.
MUSCULOSKELETAL: No edema, well perfused. neg vishal's sign
PSYCH: Normal and appropriate interaction.
Scores
Heart Failure Risk
Heart Failure Risk Score: Not Applicable
Course
Orders/Labs/Results
Orders:
Orders
06/11/24 18:39
EKG [Electrocardiogram (*1)] Urgent
Reason for Study: Shortness of Breath
EKG- Treatment ONCE
06/11/24 19:08
CXR2 [CR Chest - 2 Views ] Urgent
Comment:
Reason For Exam: short of breath
06/11/24 20:57
Ipratropium/Albuterol Sulfate [Duoneb] 3 ml INH R NOW ONE
MethylPREDNISolone PF [Solu-Medrol Pf] 125 mg IV NOW STA
06/11/24 20:58
Ipratropium/Albuterol Sulfate [Duoneb] 3 ml INH R NOW ONE
06/11/24 21:03
Complete Blood Count/With Diff Urgent
Comprehensive Metabolic Panel Urgent
Troponin I Urgent
06/11/24 22:10
CT Chest PE Study Urgent
Comment:
Reason For Exam: elev trop, dyspnea
Aspirin 325 mg PO NOW STA
06/11/24 23:30
PTT Urgent
Comment: Obtain baseline before beginning heparin infusion if not already collected
Heparin 3,000 units IV NOW STA
Heparin 77905 Units/250 ml 25,000 units in 250 ml IV PER PROTOCOL
Weight to be used for heparin protocol in kilograms (kg):: 49.4
Protocol:: Cardiac Tx/Acute Coronary
PTT Goal Range to be used:: PTT 73 to 111 seconds
Order type:: Initial
INITIAL Infusion Dose (UNITS/KG/hr) & then follow protocol:: 15 units/kg/hr
Infusion Dose in UNITS/hr & then follow protocol (UNITS/hr):: 750
INFUSION RATE in mL/hr & then follow protocol (mL/hr):: 7.5
PTT less than or equal to 64 seconds:: Increase rate by 200 units/hr (+ 2 mL/hr)
PTT 64.1 to 72.9 seconds:: Increase rate by 100 units/hr (+ 1 mL/hr)
PTT 73 to 111 seconds:: Target Range. No change in rate.
PTT 111.1 to 130.9 seconds:: Decrease rate by 100 units/hr (- 1 mL/hr)
PTT 131 to 199.9 seconds:: HOLD for 1 hr. Then decrease rate by 200 units/hr (- 2 mL/hr)
PTT greater than or equal to 200 seconds:: HOLD for 2 hrs & Notify Provider. Then decrease by 200 units/hr (-
2 mL/hr)
Lab follow-up:: Each change, PTT q6h until 2 consecutive are therapeutic. Then PTT
daily.
Pharmacy Request to Place See Dose Instructions PO NOW STA
Discontinue all Active Warfarin orders?: Yes
Nursing to Place Non Medication Order As Directed
Physician Order: PTT 6 hours after initial start of Heparin infusion
06/11/24 23:[address] See Dose Instructions IV DIRECTED
Abnormal Lab Results
06/11/24
21:03
WBC 4.7 L 10^3/uL
(4.8-10.8)
Monocytes % 9.7 H %
(1.7-9.3)
Creatinine 0.6 L mg/dL
(0.7-1.3)
Troponin I 0.320 H* ng/ml
06/11/24 21:03
06/11/24 21:03
Vital Signs
Initial and Last Documented VS:
Initial Vital Signs
Temp Pulse Resp BP Pulse Ox
36.8 C 95 20 146/119 96
06/11/24 18:33 06/11/24 18:33 06/11/24 18:33 06/11/24 18:33 06/11/24 18:33
Last Documented Vital Signs
Temp Pulse Resp BP Pulse Ox
36.8 C 93 22 133/80 94
06/11/24 18:33 06/11/24 23:00 06/11/24 23:00 06/11/24 23:00 06/11/24 23:00
MDM/Problems Addressed
Differential Diagnosis Includes:
copd exacerbation, PE, nstemi
MDM/Problems Addressed:
58 y/o M
copd recent dx
was on anoro until 4 days ago when pulm switched him to breztri
has been having episodes of severee dypnea with chest tightness
last episode 130 pm today
felt like he ws going to
using inahler 100 times in 2 days
now doesn't have chest pain, just mild tightness
wheezing and diminished on exam
hypertensive on arrival which improved slightly
ekg nonischemic
trop 0.3 which is much higher than when he was hosiptalized for this a few weeks ago
just had recent illness, could be myocarditis
d/w ed attenidng
we did PE study which was neg
will heparinize and admit
cards consult
nebs/steorids; wheezing improved
*Critical Care Note
Total Time (30-74mins, 75-104mins- exclusive of procedures): Not Applicable
ED Attending Note
-
Portions of this chart may have been created with voice recognition software.� Occasional wrong word or��sound alike� substitutions may have occurred due to the inherent limitations of voice recognition software.
Discharge Plan
Departure
Patient Disposition: Admit
Date of Disposition: 06/11/24
Time of Disposition: 23:31
Admit to: Telemetry
Presentation/result/management discussed w/ accepting MD/DO: Hospitalist
Condition: Fair
Covid-19: Not Applicable
Discharge Problem:
Non-STEMI (non-ST elevated myocardial infarction), COPD (chronic obstructive pulmonary disease)
Prescriptions:
No Action
ibuprofen 200 mg Tablet
200 mg PO Q6HPRN PRN (Reason: mild pain/fever)
Primatene Mist 0.125 mg/actuation Hfa Aerosol Inhaler
1 puff INHALATION R HSPRN PRN (Reason: sob)
albuterol sulfate 90 mcg/actuation Hfa Aerosol Inhaler
2 puff INHALATION .Q4-6HRS PRN (Reason: sob)
Breztri Aerosphere 160-9-4.8 mcg/actuation Hfa Aerosol Inhaler
2 inh INHALATION BID
Referrals:
NONE,* [Family Provider] -
Interventions
Interventions:
*Risk Screen - Suicide Last Done: 06/11/24 18:33
*General Assessment Last Done: 06/11/24 19:53
*Neglect/Abuse Screening Last Done: 06/11/24 18:33
*ED- Fall Risk Assessment Last Done: 06/11/24 20:09
*ED COVID-19 Vaccine History Last Done: 06/11/24 18:33
ED- Cardiac Assessment Last Done: 06/11/24 20:08
ED- Pulmonary Assessment Last Done: 06/11/24 20:08
Discharge Date and Time
Print Language: ROMANIAN
[2024-06-11 21:01] VITALS: BP 160/92
[2024-06-11] MEDS: SOLU-MEDROL PF 125 MG IV (21:08)
[2024-06-11] MEDS: DUONEB 3 ML INH ×2 (21:13→21:14)
[2024-06-11 21:33] LABS: Hematocrit 44.2 % (39.0-52.0); Hemoglobin 14.8 g/dL (13.0-18.0); Mean Corp Hgb Conc. 33.5 g/dL (33.0-37.0); Mean Corpuscular Hgb 27.8 pg (27.0-31.0); Mean Corpuscular Volume 83.1 fL (80.0-94.0); Mean Platelet Volume 9.1 fL (7.4-10.4); Platelet Count 221 10^3/uL (130-400); Red Blood Cell Count 5.32 10^6/uL (4.70-6.10); Red Cell Dist. Width 13.2 % (11.5-14.5); White Blood Cell Count 4.7 10^3/uL (4.8-10.8)
--- NOTE | 2024-06-11 21:40 | EDRN ---
Breathing tx finished - pt says he feels better, the tightness in his chest has eased up and is now 'just a little sore.'
[2024-06-11 21:45] LABS: ALT (SGPT) 46 U/L (0-50); AST (SGOT) 45 U/L (17-59); Albumin 4.2 g/dl (3.5-5.0); Alkaline Phosphatase 114 U/L (38-126); Blood Urea Nitrogen 11 mg/dl (9-20); Calcium 9.6 mg/dl (8.4-10.2); Carbon Dioxide 29 mmol/L (22-30); Chloride 100 mmol/L (98-107); Estimated Creatinine Clearance 96 ml/min; Glucose 95 mg/dl (70-99); Potassium 4.2 mmol/L (3.5-5.1); Sodium 137 mmol/L (135-145); Total Bilirubin 0.9 mg/dl (0.2-1.3); Total Protein 6.9 g/dl (6.3-8.2); eGFR > 60.00
[2024-06-11 21:48] LABS: % Basophils 0.4 % (0-2); % Eosinophils 1.9 % (0-6); % Lymphocytes 35.2 % (20.5-51.1); % Monocytes 9.7 % (1.7-9.3); % Neutrophils 52.8 % (42.2-75.2); Absolute Eosinophils 0.1 10^3/uL (0-0.7); Absolute Lymphocytes 1.7 10^3/uL (1.2-3.4); Absolute Monocytes 0.5 10^3/uL (0.1-0.6); Absolute Neutrophils 2.5 10^3/uL (1.4-6.5); Nucleated Red Blood Cells % 0 % (-)
[2024-06-11 22:00] VITALS: BP 139/82
[2024-06-11] MEDS: ASPIRIN 325 MG PO (22:13)
[2024-06-11 23:00] VITALS: BP 133/80
--- NOTE | 2024-06-11 23:46 | EDRN ---
Called pharmacy to verify heparin
[2024-06-11] MEDS: HEPARIN 25000 UNITS/250 ML IV (23:57)
[2024-06-11] MEDS: HEPARIN 3000 UNITS IV (23:57)
[2024-06-12] VITALS (8 sets, daily range): BP systolic 108–138; BP diastolic 69–92; BMI 16.1
[2024-06-12 00:10] LABS: APTT 27.2 Sec (23.4-35.0)
--- NOTE | 2024-06-12 00:28 | HPS.HSE ---
Family Physician
-
Family Physician: * NONE
Chief Complaint
-
SOB / Chest Tightness
History of Present Illness
Patient is a 58y M with PMH significant for COPD who presents to ED complaining of SOB and chest tightness. Patient reports several years of progressively worsening issues with SOB / HOWELL - including fairly severe episodes of breathlessness. He
was admitted at 05/20 - 05/22 and formally diagnosed with COPD at that time. He was treated with steroids / nebs with improvement in his symptoms and started on maintenance medications. Patient notes that he has been seen by Pulmonary in follow-up.
He states that his aunt (with whom he lives) was recently ill with respiratory symptoms. Patient himself started with cough and increased SOB last Thursday and his symptoms do seemed to have improved somewhat since that time.
He was seen by Pulmonary on Thursday and his Anoro was changed to Breztri. Patient states that he feels more SOB since this change.
Today he had an episode of near-complete breathlessness lasting almost 3 minutes. He developed substernal chest tightness with radiation into the back during this episode.
Patient presented to the ED for further evaluation and treatment.
He has received IV steroids / nebs here in the ED and is currently able to speak in full sentences without apparent difficulty.
Medical History
Past Medical History
Past Medical History: Reports Other
Additional Past Medical History:
COPD / Emphysema
H. pylori
Legally blind
Stargardt disease
Macular degeneration
Past Surgical History: Reports Other
Additional Past Surgical History:
History of left hip surgery for fatty removal
Social History
Tobacco: Former Smoker (20 pack years total use.)
Alcohol: None
Drug: None
Personal: Single
Living: With Family
Family History
Family History: Not pertinent
Allergies / Home Medications
Allergies reflects when Allergies were last updated in [facility].
Home Medications with original date entered in [facility]
Allergy/Medication List:
Allergies
Allergy/AdvReac Type Severity Reaction Status Date / Time
No Known Allergies Allergy Verified 06/11/24 18:39
Home Medications
epinephrine 0.125 mg/actuation aerosol inhaler (Primatene Mist) 1 puff inhalation R HSPRN PRN sob 05/20/24
ibuprofen 200 mg tablet 200 mg PO Q6HPRN PRN mild pain/fever 05/20/24
albuterol sulfate 90 mcg/actuation aerosol inhaler 2 puff inhalation .Q4-6HRS PRN sob 06/11/24
budesonide 160 mcg-glycopyr 9 mcg-formot 4.8 mcg/actuation HFA inhaler (Breztri Aerosphere) 2 inh inhalation BID 06/11/24
Review of Systems
-
History Source: Patient
A 12 point ROS was completed and negative except as noted: Yes
Constitutional: Reports Fatigue; Denies Fever or Chills
EENT: Denies Sore Throat
Respiratory: Reports Cough and Trouble Breathing
Cardiac: Reports Chest Pain; Denies Palpitations or Syncope
Abdomen/GI: Denies Abdominal Pain, Nausea, Vomiting or Diarrhea
: Denies Dysuria or Frequency
Musculoskeletal: Denies Joint Pain or Edema
Neurological: Denies Dizzy or Headache
Psych: Denies Depression or Anxiety
Physical Exam
Vital Signs
Vital Signs
Temp Pulse Resp BP Pulse Ox
98.3 F 85 20 131/89 93
06/11/24 18:33 06/12/24 00:00 06/12/24 00:00 06/12/24 00:00 06/12/24 00:00
Physical Exam
General: Other (58y M in mild distress due to dyspnea.)
HEENT: Moist mucous membranes, PERRLA and Other (neck supple.)
Respiratory: Other (Diminished breath sounds throughout. Diffuse expiratory wheezes. No rales / rhonchi.)
Cardiac: S1/S2 and Regular Rhythm; No Murmur
GI: Soft, Non Tender, Non Distended and Normal Bowel Sounds
Musculoskeletal: No Clubbing, No Cyanosis and No Edema
Neuro: AO x 3
Laboratory Results
-
06/11/24 21:03
06/11/24 21:03
Laboratory Results
Total Bilirubin 0.9 mg/dl (0.2-1.3) 06/11/24 21:
AST 45 U/L (17-59) 06/11/24 21:03
ALT 46 U/L (0-50) 06/11/24 21:03
Alkaline Phosphatase 114 U/L (38-126) 06/11/24 21:03
Troponin I 0.320 ng/ml H* 06/11/24 21:03
Impression/Plan
-
A/P: Patient is a 58y M with PMH significant for vision impairment and COPD who presents to ED complaining of SOB and chest tightness.
COPD with Acute Exacerbation
- Admit for further evaluation and treatment.
- Likely triggered by recent URI symptoms - seem to be improving.
- Check COVID / flu status for completeness.
- CXR / CT Chest without focal infiltrate / pneumonia
- IV steroid, nebs, etc and follow for clinical improvement.
- Pulmonary evaluation for additional recommendations.
Abnormal Troponin - Suspect Type II NH
- EKG is unremarkable (inferior ST changes appear improved from prior actually).
- Some mid-chest discomfort / tightness associated with severe SOB.
- Suspect type II ischemia due to underlying COPD exacerbation / respiratory issue.
- IV heparin started in the ED - would have low threshold to discontinue if troponin trends downward.
- Follow troponin to peak.
- Daily ASA for now.
- Cardiology evaluation for additional recommendations.
Moderate Protein Calorie Malnutrition
- Patient notes significant weight loss - unintentional.
- Suspect pulmonary cachexia.
- Nutrition support.
Legally Blind
Stargardt Disease
- Chronic / Stable.
DVT Prophylaxis: On IV heparin at present
Code Status: Full
[2024-06-12 01:03] LABS: COVID-19 Antigen Negative (Negative)
--- NOTE | 2024-06-12 01:25 | EDRN ---
Pt is a telemetry admission assigned to an IVU bed - verbal report given to IVU
[2024-06-12] MEDS: DECADRON 4 MG IV ×2 (02:25→10:35)
--- NOTE | 2024-06-12 02:43 | PTCARENOTE ---
pt admitted to room 2244 with chest tightness. On arrival pt denies any pain or discomfort. NSR on monitor. pt legally blind but able to move independently in the room. pt oriented to room, call haile in reach. NPO after midnight
[2024-06-12 03:25] LABS: Troponin I 0.254 ng/ml
[2024-06-12 03:42] LABS: TSH Reflex To Free T4 0.33 uIU/ml (0.47-4.68)
[2024-06-12 04:11] LABS: Free T4 1.42 ng/dl (0.78-2.19)
[2024-06-12 06:53] LABS: Hematocrit 40.8 % (39.0-52.0); Hemoglobin 13.9 g/dL (13.0-18.0); Mean Corp Hgb Conc. 34.1 g/dL (33.0-37.0); Mean Corpuscular Volume 82.1 fL (80.0-94.0); Mean Platelet Volume 9.3 fL (7.4-10.4); Platelet Count 240 10^3/uL (130-400); Red Blood Cell Count 4.97 10^6/uL (4.70-6.10); Red Cell Dist. Width 13.2 % (11.5-14.5); White Blood Cell Count 1.8 10^3/uL (4.8-10.8)
--- NOTE | 2024-06-12 06:55 | W.PN.HOSP.TC ---
Addendum entered and electronically signed by Kendal Sharp MD 06/12/24 14:32:
Addendum
Repeat CBC showed improvement in white count.
Repeat CBC with differential tomorrow in a.m.
-Patient is having muscle spasm in his lower extremity. Will give 1 dose of magnesium, as needed baclofen. Check CMP, magnesium and iron study in a.m.
End
Original Note:
Today's Communication/Plan
-
c/w IV Heparin gtt
will do WBC with differential, might need neutropenic precautions
Assessment / Plan
Assessment / Plan
Physical Exam
General: Other (58y M in mild distress due to dyspnea.)
HEENT: Moist mucous membranes, PERRLA and Other (neck supple.)
Respiratory: Other (Diminished breath sounds throughout. less diffuse expiratory wheezes. No rales / rhonchi.
Cardiac: S1/S2 and Regular Rhythm; No Murmur
GI: Soft, Non Tender, Non Distended and Normal Bowel Sounds
Musculoskeletal: No Clubbing, No Cyanosis and No Edema
Neuro: AO x 3, he followed commands
Psych: calm.
Patient is a 58y M with PMH significant for vision impairment and COPD who presents to ED complaining of SOB and chest tightness.
#COPD with Acute Exacerbation
He is less sob, mild wheezing this morning. No hypoxia.
Suspect secondary to upper respiratory viral infection.
Negative COVID / flu
CXR / CT Chest without focal infiltrate / pneumonia
C/W IV steroid, nebs, etc and follow for clinical improvement.
f/w pulmonary recommendations.
# Positive troponin he presented with chest tightness.
Troponin is trending down
No chest pain
Continue with IV heparin
Continue with aspirin
Order echo
Follow-up with cardiology recommendation
# Leukopenia
No fever. Suspect secondary to recent viral illness.
Order differential count
Continue to monitor
Repeat CBC with differential in a.m.
Moderate Protein Calorie Malnutrition
- Patient notes significant weight loss - unintentional.
- Suspect pulmonary cachexia.
- Nutrition support.
Legally Blind
Stargardt Disease
- Chronic / Stable.
DVT Prophylaxis: On IV heparin at present
Code Status: Full
Total time spent to see the patient, examine the patient, review data and lab results, discuss treatment plan with patient and nursing staff around 55 minutes
Anticipated Discharge: 24 - 48 hours
Subjective/Interval History
-
Date of Service: June 12, 2024
No chest pain
Less sob
Objective Data
-
Labs:
Laboratory Results
06/11/24 06/11/24 06/12/24
21:03 23:41 06:31
WBC 4.7 L 1.8 L*
Hgb 14.8 13.9
Hct 44.2 40.8
Plt Count 221 240
APTT 27.2 Pending
Sodium 137 Pending
Potassium 4.2 Pending
Chloride 100 Pending
Carbon Dioxide 29 Pending
BUN 11 Pending
Creatinine 0.6 L Pending
Glucose 95 Pending
Calcium 9.6 Pending
Total Bilirubin 0.9
AST 45
ALT 46
Alkaline Phosphatase 114
Vital Signs:
Vital Signs
Temp Pulse Resp BP Pulse Ox
98.2 F 90 18 117/79 94
06/12/24 01:59 06/12/24 06:24 06/12/24 01:59 06/12/24 06:24 06/12/24 02:00
[2024-06-12 06:56] LABS: APTT 52.7 Sec (23.4-35.0)
[2024-06-12 07:05] LABS: Troponin I 0.159 ng/ml
[2024-06-12 07:07] LABS: Blood Urea Nitrogen 15 mg/dl (9-20); Calcium 9.6 mg/dl (8.4-10.2); Carbon Dioxide 27 mmol/L (22-30); Chloride 99 mmol/L (98-107); Estimated Creatinine Clearance 96 ml/min; Glucose 162 mg/dl (70-99); HDL Cholesterol 84 mg/dl; LDL Cholesterol, Calculated 114 mg/dl; Potassium 4.6 mmol/L (3.5-5.1); Sodium 136 mmol/L (135-145); Total Cholesterol 212 mg/dl (50-199); Triglyceride 70 mg/dl (10-149); Very Low Density Lipoprotein 14 mg/dl (0-30); eGFR > 60.00
[2024-06-12] MEDS: DUONEB 3 ML INH ×4 (07:17→19:15)
[2024-06-12] MEDS: LOW STRENGTH ASPIRIN 81 MG PO (07:36)
[2024-06-12] MEDS: FLUSH (NSS) 2 FLUSH IV ×2 (07:37→10:36)
--- NOTE | 2024-06-12 07:47 | PTCARENOTE ---
The patient is aaox3, vital signs are stable. NSR is noted on the monitor. His lungs are diminished with some scattered wheezing. He has an occasional moist non-productive cough. He states' I just can't seem to get it out.' He is not experiencing
any chest pressure/pain. His heparin gtt is running at 950 units/hr.
--- NOTE | 2024-06-12 09:54 | CON.CAR ---
Consultation
Consultation Request
Date/Time Consultation Requested: 06/12/24, 7am
Date/Time Consultation Performed: 06/12/24, 830am
Requesting Provider: Janusz
Performing Provider: Daniel
Reason for Consultation: elevated troponin
Medical History
-
Chief Complaint: SOB, chest tightness
History of Present Illness:
58 yo male with newly diagnosed COPD, mild hyperlipidemia, FH CAD, former tobacco (quit 2018), legally blind (Stargardt disease) is admitted with SOB, chest tightness. We are consulted for elevated troponin. He is currently pain free.
Allergies / Home Medications
Allergy/AdvReac Type Severity Reaction Status Date / Time
No Known Allergies Allergy Verified 06/11/24 18:39
�Medication �Instructions �Recorded �Confirmed �Type
epinephrine 0.125 mg/actuation 1 puff inhalation R HSPRN PRN sob 05/20/24 06/11/24 History
aerosol inhaler (Primatene Mist)
ibuprofen 200 mg tablet 200 mg PO Q6HPRN PRN mild 05/20/24 06/11/24 History
pain/fever
albuterol sulfate 90 mcg/actuation 2 puff inhalation .Q4-6HRS PRN sob 06/11/24 06/11/24 History
aerosol inhaler
budesonide 160 mcg-glycopyr 9 2 inh inhalation BID 06/11/24 06/11/24 History
mcg-formot 4.8 mcg/actuation HFA
inhaler (Breztri Aerosphere)
Physical Exam
Vital Signs
Temp Pulse Resp BP Pulse Ox
98.5 F 87 16 123/83 96
06/12/24 07:15 06/12/24 07:20 06/12/24 07:20 06/12/24 07:11 06/12/24 09:26
Lab Results
06/12/24 06:31
06/12/24 06:31
Troponin I 0.159 ng/ml H* D 06/12/24 06:31
Impression / Plan
-
58 yo male with newly diagnosed COPD, mild hyperlipidemia, FH CAD, former tobacco (quit 2018), legally blind (Stargardt disease) is admitted with SOB, chest tightness. We are consulted for elevated troponin. He is currently pain free.
# Elevated troponin
-with SOB/chest tightness, which could be explained by COPD
-peak trop 0.320, EKG with NSR, no acute ischemic changes
-could be ACS vs Type II [place] vs acute non-ischemic myocardial injury in setting of COPD exacerbation
-we discussed cardiac cath, echo, and stress test; patient not ready for invasive testing/cath
-we decided will we start with echo
-if normal: med mgmt and likely outpatient stress
-if abnormal: revisit topic of cath
-cont ASA, heparin drip pending echo
-monitor Hgb, PTT while on heparin
# COPD exacerbation
-severe, requiring hospitalization and IV steroids
# Mildly elevated LDL
-not currently on statin
Data Reviewed
-
EKG: Tracing Personally Visualized and interpreted (NSR, nl EKG)
Labs: Labs Reviewed by me
--- NOTE | 2024-06-12 11:32 | CON.PUL ---
Consultation
Consultation Request
Date/Time Consultation Requested: 06/12/2024
Date/Time Consultation Performed: 06/12/2024
Requesting Provider: Kira Miranda
Performing Provider: Krissy Luu
Reason for Consultation: Shortness of breath
Medical History
-
Chief Complaint: Dyspnea
History of Present Illness:
Patient is a 58-year-old gentleman with recent diagnosis of severe emphysema. He was admitted in the hospital less than a month ago with COPD exacerbation. He was started on Anoro at home. He was seen in pulmonary clinic last week and reported
intermittent breakthrough symptoms and was transition to Breztri 2 puffs twice a day along with as needed albuterol. Patient reports that over the last few days he got exposed to a sick contact and developed upper respiratory symptoms which then
progressed to cough with worsening shortness of breath. Patient reports at least 3 episodes over the last few days where he could not breathe at all for a period of time which eventually prompted evaluation in the emergency room. Patient was noted
to have elevated troponin along with the bilateral significant wheezing and he was admitted to the hospital for further management. Pulmonary consultation and cardiology consultation was requested for further input.
Past Medical History
Past Medical History: Reports Other
Additional Past Medical History:
COPD / Emphysema
H. pylori
Legally blind
Stargardt disease
Macular degeneration
Past Surgical History: Reports Other
Additional Past Surgical History:
History of left hip surgery for fatty removal
Social History
Tobacco: Former Smoker (20 pack years total use, quit in 2018)
Alcohol: None
Drug: None
Personal: Single
Living: With Family
Family History
Family History: Not pertinent
Allergies / Home Medications
Allergies
Allergy/AdvReac Type Severity Reaction Status Date / Time
No Known Allergies Allergy Verified 06/11/24 18:39
Home Medications
�Medication �Instructions �Recorded �Confirmed �Last Taken �Type
epinephrine 0.125 mg/actuation 1 puff inhalation R HSPRN PRN sob 02/28/25 03/22/25 Unknown History
aerosol inhaler (Primatene Mist)
ibuprofen 200 mg tablet 200 mg PO Q6HPRN PRN mild 05/20/24 06/11/24 Unknown History
pain/fever
albuterol sulfate 90 mcg/actuation 2 puff inhalation .Q4-6HRS PRN sob 06/11/24 06/11/24 Unknown History
aerosol inhaler
budesonide 160 mcg-glycopyr 9 2 inh inhalation BID 06/11/24 06/11/24 Unknown History
mcg-formot 4.8 mcg/actuation HFA
inhaler (Breztri Aerosphere)
Review of Systems
-
Hematologic/Lymphatic: Other (All 14 systems reviewed and negative except as stated above in the history of present illness.)
Vitals / Labs / Diagnostic Testing
Vital Signs
Temp Pulse Resp BP Pulse Ox
98.5 F 95 16 123/83 96
06/12/24 07:15 06/12/24 11:13 06/12/24 11:13 06/12/24 07:11 06/12/24 09:26
Lab Data
06/12/24 06:31
Laboratory Results
06/11/24 06/12/24
23:41 06:31
APTT 27.2 52.7 H
Microbiology
06/12/24 00:41 Nasal Swab Influenza Types A & B (JAZMÍN) - Final
Negative for Influenza A & B, NAAT
Negative results must be combined with clinical observations
and patient history.
Nucleic Acid Amplification test (NAAT)performed on the
[employer] platform.
Diagnostic Testing:
Physical Exam
-
HEENT: Normocephalic
Cardiovascular: S1/S2
Respiratory: Wheeze and Non-Labored Respirations
GI: Soft and Non Distended
Neurology: Awake and Alert
Skin: Warm
General: Comfortable
Assessment
-
#1. Acute COPD exacerbation with severe underlying obstructive airway disease. (FEV1 0.85 Ltr, 23% of predicted during in-office spirometry)
-Continue DuoNeb 4 times daily, as needed albuterol
-Add Pulmicort twice a day, switch to Solu-Medrol 40 daily
-Azithromycin 500 mg daily for 3 days
-Resume Breztri and as needed albuterol at discharge
-Outpatient follow-up with pulmonary clinic, currently established with [facility]
-Check alpha-1 AT, emphysema appears to be out of proportion to reported smoking history and age
-Check VBG in AM
-20 pack year smoking history, quit few years ago
#2. Troponin leak, non-STEMI, type II. Could be related to underlying COPD exacerbation
-Currently chest pain-free
-Cardiology service on case, echo pending
-Continuing on aspirin and heparin drip
Total time spent on this consultation/encounter _60___ minutes which includes review of history, physical exam, medications, laboratory data, personal review of imaging, extensive review of outpatient records, discussion with care team and
respiratory therapy.
Data:
CT Chest 05/2024: 1. No evidence of pulmonary embolism.
2. No significant acute abnormality identified in the chest, as described above. Advanced emphysematous change redemonstrated.
6 MWT:� 06/07/24: At rest, O2 96% on room air, heart rate 95. With ambulation, O2 ish 92%, max heart rate 111. 0/10 on dyspnea scale. Ambulated 1800 feet.PFT:�����
In-office Spirometry 06/07/2024: FVC 2.62/55%, FEV1 0.85/23%, ratio 32%, no significant BD response.� Very severe obstruction and suggestive of restrictive pattern
[2024-06-12] MEDS: ZITHROMAX 500 MG PO (12:28)
[2024-06-12 12:48] LABS: White Blood Cell Count 2.4 10^3/uL (4.8-10.8)
[2024-06-12 12:49] LABS: Absolute Neutrophils -Man Diff 1.5 10^3/uL (1.4-6.5); Atypical Lymphocytes 2 %; Band Neutrophils 1 % (0-3); Lymphocytes 26 % (20-51); Monocytes 6 % (2-9); Segmented Neutrophils 65 % (42-75)
[2024-06-12 12:50] LABS: Normal RBC Morphology Yes; Platelets Checked YES
[2024-06-12 12:51] LABS: Total Cells Counted 100
[2024-06-12 12:58] LABS: Glycohemoglobin (HgbA1c) 5.7 % (4.0-5.6)
[2024-06-12 13:45] LABS: APTT 55.8 Sec (23.4-35.0)
[2024-06-12 14:02] LABS: Troponin I 0.075 ng/ml
[2024-06-12] MEDS: MAGNESIUM OXIDE 500 MG PO (14:50)
--- NOTE | 2024-06-12 14:57 | PTCARENOTE ---
Patient complained of his feet being 'crampy.' I alerted Dr. Sharp of his complaint. Magnesium 500mg po ordered and given.
--- NOTE | 2024-06-12 17:07 | RESPNOTE ---
patient very interested in a home nebulizer unit. Feels like he gets more when neb vs HFA inhaler. patient on Breztri at baseline, recent switch from Anoro dpi. patient not sure how well Breztri inhaler was working for him. educated patient that a
full PFT can determine if this inhaler is working for his COPD,when he's seen in office for follow-up. patient states he has pulmonary appointment coming early July. discussed with/ educated pt on his current treatment plan for the COPD, and that a
steroid neb has been added for this evening. patient with many questions regarding treatment options outside of current tx plan, like elective lobe reduction with 'zehpyr' valve. attempt to re-direct again as this procedure not performed here and
having no idea if he would be a candidate. patient receptive overall but often interjects with his own 'research,' that is not totally correct, and difficult to re-direct and correct patient as he thinks his research is accurate.
[2024-06-12] MEDS: FLUSH (NSS) 1 FLUSH IV (17:33)
[2024-06-12] MEDS: SOLU-MEDROL PF 40 MG IV (17:33)
[2024-06-12] MEDS: PULMICORT 0.25 MG INH (19:16)
--- NOTE | 2024-06-12 21:07 | PTCARENOTE ---
assumed care of patient at the change of shift. AAOx3. denies any pain except for 'muscle cramps' b/l LE. offered patient Baclofen- refusing at time. cramps come and go per patient. ST on tele 100s-115. denies palps. complains for shortness of
breath. lungs diminished throughout. 92% on RA. heparin gtt infusing per protocol. IV site patent. reviewed plan of care with patient and verbalized understanding. NPO at midnight. call haile within reach. independent in the room.
[2024-06-12 21:16] LABS: APTT 84.7 Sec (23.4-35.0)
[2024-06-12] MEDS: LIORESAL 2.5 MG PO (23:47)
[2024-06-12] MEDS: HEPARIN 25000 UNITS/250 ML IV (23:47)
[2024-06-13 03:05] VITALS: BP 109/83
[2024-06-13 03:13] VITALS: BMI 16.1
[2024-06-13 03:34] LABS: APTT 94.2 Sec (23.4-35.0)
[2024-06-13 04:20] LABS: ALT (SGPT) 252 U/L (0-50); AST (SGOT) 119 U/L (17-59); Albumin 3.6 g/dl (3.5-5.0); Alkaline Phosphatase 118 U/L (38-126); Blood Urea Nitrogen 23 mg/dl (9-20); Calcium 9.6 mg/dl (8.4-10.2); Carbon Dioxide 27 mmol/L (22-30); Chloride 105 mmol/L (98-107); Estimated Creatinine Clearance 83 ml/min; Glucose 145 mg/dl (70-99); Iron 240 ug/dl (49-181); Magnesium 2.1 mg/dl (1.6-2.3); Potassium 4.4 mmol/L (3.5-5.1); Sodium 138 mmol/L (135-145); Total Bilirubin 0.6 mg/dl (0.2-1.3); eGFR > 60.00
[2024-06-13 04:30] LABS: Percent Saturation 108 % (20-50); Total Iron Binding Capacity 221 ug/dl (261-462)
[2024-06-13 07:00] VITALS: BP 110/66
[2024-06-13] MEDS: PULMICORT 0.25 MG INH ×2 (07:16→20:57)
[2024-06-13] MEDS: DUONEB 3 ML INH ×4 (07:16→20:57)
[2024-06-13] MEDS: SOLU-MEDROL PF 40 MG IV (08:06)
[2024-06-13] MEDS: ZITHROMAX 500 MG PO (08:06)
[2024-06-13] MEDS: LOW STRENGTH ASPIRIN 81 MG PO (08:06)
--- NOTE | 2024-06-13 08:14 | W.PN.CD ---
Addendum entered and electronically signed by Hermes Gee MD 06/13/24 14:42:
Echo without evidence of underlying cardiomyopathy. No evidence of prior MO or RWMA. Would recommend stopping heparin and setting patient up for outpatient cardiology follow up to discuss ischemic evaluation. Cardiology will sign off.
Original Note:
Today's Communication / Plan
-
echo, then further plans as detailed
stop heparin is echo normal
Impression / Plan
-
58 yo male with newly diagnosed COPD, mild hyperlipidemia, FH CAD, former tobacco (quit 2018), legally blind (Stargardt disease) is admitted with SOB, chest tightness. We are consulted for elevated troponin. He is currently pain free.
# Elevated troponin
-with SOB/chest tightness, which could be explained by COPD
-peak trop 0.320 now downtrending, EKG with NSR, no acute ischemic changes
-could be ACS vs Type II [place] vs acute non-ischemic myocardial injury in setting of COPD exacerbation
-long discussion re: cardiac cath, echo, and stress test; patient not ready for invasive testing/cath
-plan for echo today, if normal will defer ischemic evaluation to outpatient, if abnormal, will discuss CT coronary angio vs. invasive cath
-cont ASA, heparin drip pending echo, if normal will stop heparin
-monitor Hgb, PTT while on heparin
# COPD exacerbation
-severe, requiring hospitalization and IV steroids
-relatively young age and significant emphysematous changes on CT, consider A1AT workup?
# Mildly elevated LDL
-not currently on statin, family history of CAD, will discuss pending workup as above
Physical Exam
Vital Signs/Labs
Vital Signs
Temp Pulse Resp BP Pulse Ox
36.5 C 73 16 110/66 92
06/13/24 07:00 06/13/24 07:18 06/13/24 07:18 06/13/24 07:00 06/13/24 07:00
06/12/24 06/13/2425
06:59 06:59 06:59
Actual Weight 49.4 kg 49.5 kg
06/12/24 11:48
06/13/24 03:06
APTT 94.2 Sec (23.4-35.0) H 06/13/24 03:06
Magnesium 2.1 mg/dl (1.6-2.3) 06/13/24 03:06
Triglycerides 70 mg/dl (10-149) 06/12/24 06:31
LDL Cholesterol, Calc 114 mg/dl 06/12/24 06:31
VLDL Cholesterol, Calc 14 mg/dl (0-30) 06/12/24 06:31
HDL Cholesterol 84 mg/dl 06/12/24 06:31
Free T4 1.42 ng/dl (0.78-2.19) 06/12/24 02:33
LAB Results
06/11/24 06/12/24 06/12/24
21:03 02:33 06:31
Troponin I 0.320 H* 0.254 H* 0.159 H* D
06/12/24
13:19
Troponin I 0.075 H* D
Physical Exam
Constitutional: No acute distress
Cardiovascular: Rhythm & rate is regular
Respiratory: Other (dec breath sounds)
Neuro/Psych: AO x 3
Data Reviewed
-
Date of Service: June 13, 2024
Medical Decision Making: Reviewed Test Results
EKG: Tracing Personally Visualized and interpreted
Echo: Tracing Personally Visualized and interpreted and Report Reviewed by me
X-Ray/CT/US/MRI/NUC/PET: Image Personally Visualized and interpreted
--- NOTE | 2024-06-13 08:30 | PTCARENOTE ---
Assumed care of pt from retail shift leader RN. JASMINAOx3. NSR/ST on tele, HRs 90s-100s. SpO2 92% on room air. Heparin gtt infusing at 1150 units/hr, pt is therapeutic at this rate. Pt remains NPO for echo today.
--- NOTE | 2024-06-13 10:20 | W.PN.PUL3 ---
Today's Communication / Plan
-
Continue nebulizer without change.
IV steroids without change today, transition to prednisone tomorrow.
Nebulizer regimen-continue while in the hospital
Restart inhalers upon discharge
Will have my office set up a nebulizer with DuoNebs as needed
2 days of azithromycin
Echocardiogram pending
Hopefully discharge planning in 24 hours
Assessment
-
#1. Acute COPD exacerbation with severe underlying obstructive airway disease. (FEV1 0.85 Ltr, 23% of predicted during in-office spirometry)
-Continue DuoNeb 4 times daily, as needed albuterol-While in the hospital
- continue Pulmicort twice a day,-while in the hospital
-Continue Solu-Medrol 40 daily-will transition to prednisone tomorrow 06/14/2024-40 mg and decrease by 10 mg every 72 hours to off.
-Azithromycin 500 mg daily for 2 additional days
-Resume Breztri and as needed albuterol at discharge (this patient in the outpatient setting does not respond to inhalers may consider transition to nebulized regimen)
-Will have my office set him up with a nebulized machine with DuoNebs as needed. Patient states that he is on a fixed income. Hopefully insurance will cover.
-Outpatient follow-up with pulmonary clinic, currently established with [facility]-has an appointment with Dr. Sandoval in July 2024.
-Check alpha-1 AT, emphysema appears to be out of proportion to reported smoking history and age-pending
-Check VBG in AM (less likely hypercapnic, there is no compensatory metabolic alkalosis)
-20 pack year smoking history, quit few years ago
#2. Troponin leak, non-STEMI, type II. Could be related to underlying COPD exacerbation
-Currently chest pain-free
-Cardiology service on case, echo pending
-Continuing on aspirin
-Heparin drip has been discontinued
Will follow.
Outpatient pulmonary follow-up after discharge.
Data:
CT Chest 05/2024: 1. No evidence of pulmonary embolism.
2. No significant acute abnormality identified in the chest, as described above. Advanced emphysematous change redemonstrated.
6 MWT:� 06/07/24: At rest, O2 96% on room air, heart rate 95. With ambulation, O2 ish 92%, max heart rate 111. 0/10 on dyspnea scale. Ambulated 1800 feet.PFT:�����
In-office Spirometry 06/07/2024: FVC 2.62/55%, FEV1 0.85/23%, ratio 32%, no significant BD response.� Very severe obstruction and suggestive of restrictive pattern
Subjective Data
-
Date of Service:
Date of Service: June 13, 2024
Chief Complaint: Pulmonary Follow Up (Acute exacerbation of COPD)
Review of Systems
Cardiopulmonary: Dyspnea, Dyspnea on Exertion and Cough
Objective Data
Data Reviewed
Vital Signs / I&O / Oxygen:
Vital Signs
Temp Pulse Resp BP Pulse Ox
97.7 F 73 16 110/66 92
06/13/24 07:00 06/13/24 07:18 06/13/24 07:18 06/13/24 07:00 06/13/24 07:00
Intake and Output
06/12/24 06/13/24 06/14/24
06:59 06:59 06:59
Intake Total 250 / 250
Balance 250 / 250
SaO2 92
Physical Exam
General: Comfortable
HEENT: Normocephalic
Cardiovascular: S1-S2
Respiratory: Wheeze and Non-Labored Respirations (At rest)
GI: Soft and Non Distended
Neurology: Awake and No Motor Deficits
Skin: Warm
Labs/Micro/Reports
Lab Data
06/12/24 11:48
06/13/24 03:06
Laboratory Results
06/12/24 06/12/24 06/13/24
13:19 20:50 03:06
APTT 55.8 H 84.7 H 94.2 H
Microbiology
06/12/24 00:41 Nasal Swab Influenza Types A & B (JAZMÍN) - Final
Negative for Influenza A & B, NAAT
Negative results must be combined with clinical observations
and patient history.
Nucleic Acid Amplification test (NAAT)performed on the
[employer] platform.
--- NOTE | 2024-06-13 11:12 | W.PN.HOSP.TC ---
Today's Communication/Plan
-
ECHO pending
IV steroids
nebuilizer
po azithromycin
Assessment / Plan
Assessment / Plan
Physical Exam
General: talking in complete sentences, not tachypneic, cachetic
HEENT: Moist mucous membranes, and Other (neck supple.)
Respiratory: dec bs, no wheezing
Cardiac: S1/S2 and Regular Rhythm; No Murmur
GI: Soft, Non Tender, Non Distended and Normal Bowel Sounds
Musculoskeletal: No Clubbing, No Cyanosis and No Edema
Neuro: AO x 3, he followed commands
Psych: calm.
Patient is a 58y M with PMH significant for vision impairment and COPD who presents to ED complaining of SOB and chest tightness.
#COPD with Acute Exacerbation
Suspect secondary to upper respiratory viral infection.
Negative COVID / flu
CXR / CT Chest without focal infiltrate / pneumonia
C/W IV steroid, nebs, etc and follow for clinical improvement. cont azithromycin
f/w pulmonary recommendations.
# Positive troponin he presented with chest tightness.
Troponin is trending down
No chest pain
Continue with IV heparin till echo
Continue with aspirin
ECHO pending.
Further plan to be determined based on ECHO results.
Follow-up with cardiology recommendation
# Leukopenia
No fever. Suspect secondary to recent viral illness.
Order differential count
Continue to monitor
Repeat CBC with differential in a.m.
Moderate Protein Calorie Malnutrition
- Patient notes significant weight loss - unintentional.
- Suspect pulmonary cachexia.
- Nutrition support.
Legally Blind
Stargardt Disease
- Chronic / Stable.
DVT Prophylaxis: On IV heparin at present
Code Status: Full
d/w with pulmonary
Anticipated Discharge: 24 - 48 hours
Subjective/Interval History
-
Date of Service: June 13, 2024
denies left sided pain
on room air
Objective Data
-
Labs:
Laboratory Results
06/13/24
03:06
APTT 94.2 H
Sodium 138
Potassium 4.4
Chloride 105
Carbon Dioxide 27
BUN 23 H
Creatinine 0.7
Glucose 145 H
Calcium 9.6
Total Bilirubin 0.6
AST 119 H
ALT 252 H
Alkaline Phosphatase 118
Vital Signs:
Vital Signs
Temp Pulse Resp BP Pulse Ox
97.7 F 73 16 110/66 92
06/13/24 07:00 06/13/24 07:18 06/13/24 07:18 06/13/24 07:00 06/13/24 07:00
I&O
06/12/24 06/13/24 06/14/24
06:59 06:59 06:59
Intake Total 250 / 250
Balance 250 / 250
Data Reviewed
-
Total Time Spent with Patient (in minutes): 55
[2024-06-13 11:14] VITALS: BP 122/89
--- NOTE | 2024-06-13 11:17 | CM ---
Chart reviewed. Patient is legally blind, independent of ADLS, lives with his aunt in a [address], ambulates with a SPC but not for stability just because of being blind. Plan is for the patient to return home. CM to follow
[2024-06-13 11:31] VITALS: BMI 16.1
--- NOTE | 2024-06-13 14:48 | PTCARENOTE ---
Echo only showing mild mitral regurgitation. Per cardiology, ok to discontinue Heparin gtt. Heparin stopped. Will continue IV steroids today and transition to oral prednisone tomorrow, per pulmonology. Possible discharge tomorrow.
[2024-06-13 15:24] VITALS: BP 119/66
[2024-06-13 18:27] VITALS: BP 123/80
[2024-06-13 22:15] VITALS: BP 126/72
[2024-06-13] MEDS: TYLENOL 650 MG PO (22:16)
[2024-06-13 23:36] LABS: Alpha-1-Antitrypsin 193 mg/dL (90-200)
[2024-06-14 03:11] VITALS: BP 108/78
--- NOTE | 2024-06-14 03:20 | PTCARENOTE ---
patient states sleeping well overnight. SR on tele 70s. offers no complaints. independent in the room. educated to call RN with any changes.
[2024-06-14 07:05] VITALS: BP 114/85
[2024-06-14] MEDS: PULMICORT 0.25 MG INH (07:16)
[2024-06-14] MEDS: DUONEB 3 ML INH ×2 (07:16→11:53)
--- NOTE | 2024-06-14 08:04 | W.PN.CD ---
Addendum entered and electronically signed by Hermes Gee MD 06/14/24 11:56:
Cardiology to arrange outpatient follow up. Will sign off at this time. Please call with additional questions.
Original Note:
Today's Communication / Plan
-
stable from CV standpoint, no further CP
emphasized importance of outpatient ischemic evaluation
COPD management per pulmonary/primary
Impression / Plan
-
58 yo male with newly diagnosed COPD, mild hyperlipidemia, FH CAD, former tobacco (quit 2018), legally blind (Stargardt disease) is admitted with SOB, chest tightness. We are consulted for elevated troponin. He remains pain free. TTE with normal
BiV function and no RWMA.
# Elevated troponin
-with SOB/chest tightness, which could be explained by COPD
-peak trop 0.320, EKG with NSR, no acute ischemic changes
-could be ACS vs Type II [place] vs acute non-ischemic myocardial injury in setting of COPD exacerbation
-long discussion re: cardiac cath, echo, and stress test; patient not ready for invasive testing/cath; in setting of normal echo will defer ischemic evaluation to outpatient
-cont ASA, s/p heparin drip
# COPD exacerbation
-severe, requiring hospitalization and IV steroids
-relatively young age and significant emphysematous changes on CT, consider A1AT workup?
# Mildly elevated LDL
-not currently on statin, family history of CAD, can discuss as outpatient
TTE 06/14/2024
Normal biventricular size and systolic function without regional wall motion
abnormality.
Mild mitral regurgitation.
No prior study available for comparison.
Physical Exam
Vital Signs/Labs
Vital Signs
Temp Pulse Resp BP Pulse Ox
36.4 C 75 16 114/85 92
06/14/24 07:06 06/14/24 07:18 06/14/24 07:18 06/14/24 07:05 06/14/24 07:18
06/13/24 06/14/24 06/15/24
06:59 06:59 06:59
Actual Weight 49.5 kg
06/14/24 06:00
06/13/24 03:06
APTT Cancelled 06/14/24 06:00
Magnesium 2.1 mg/dl (1.6-2.3) 06/13/24 03:06
Triglycerides 70 mg/dl (10-149) 06/12/24 06:31
LDL Cholesterol, Calc 114 mg/dl 06/12/24 06:31
VLDL Cholesterol, Calc 14 mg/dl (0-30) 06/12/24 06:31
HDL Cholesterol 84 mg/dl 06/12/24 06:31
Free T4 1.42 ng/dl (0.78-2.19) 06/12/24 02:33
LAB Results
06/11/24 06/12/24 06/12/24
21:03 02:33 06:31
Troponin I 0.320 H* 0.254 H* 0.159 H* D
06/12/24
13:19
Troponin I 0.075 H* D
Physical Exam
Constitutional: No acute distress
Cardiovascular: Rhythm & rate is regular
Respiratory: Respiratory effort normal
Neuro/Psych: AO x 3
Data Reviewed
-
Date of Service: June 14, 2024
Medical Decision Making: External Notes
Echo: Tracing Personally Visualized and interpreted and Report Reviewed by me
Labs: Labs Reviewed by me
[2024-06-14] MEDS: ZITHROMAX 500 MG PO (08:11)
[2024-06-14] MEDS: SOLU-MEDROL PF 40 MG IV (08:12)
[2024-06-14] MEDS: LOW STRENGTH ASPIRIN 81 MG PO (08:12)
--- NOTE | 2024-06-14 08:30 | PTCARENOTE ---
Assumed care of pt from overnight houseperson ABHIJIT. Janice CELESTE on tele. VSS. Assessment documented. Plan for discharge home today.
--- NOTE | 2024-06-14 08:33 | W.PN.HOSP.TC ---
Addendum entered and electronically signed by Davie Song MD 06/14/24 13:31:
correction Scds/ambulation encourage for dvtpp. hep gtt was stopped
Original Note:
Today's Communication/Plan
-
steroids taper
Nebulizer
Assessment / Plan
Assessment / Plan
Physical Exam
General: talking in complete sentences, not tachypneic, cachetic
HEENT: Moist mucous membranes, and Other (neck supple.)
Respiratory: cta bl
Cardiac: S1/S2 and Regular Rhythm; No Murmur
GI: Soft, Non Tender, Non Distended and Normal Bowel Sounds
Musculoskeletal: No Clubbing, No Cyanosis and No Edema
Neuro: AO x 3, he followed commands
Psych: calm.
Patient is a 58y M with PMH significant for vision impairment and COPD who presents to ED complaining of SOB and chest tightness.
#COPD with Acute Exacerbation
Suspect secondary to upper respiratory viral infection.
Negative COVID / flu
CXR / CT Chest without focal infiltrate / pneumonia
C/W IV steroid, nebs, etc and follow for clinical improvement. azithromycin compelted course.
steroids taper.
f/w pulmonary recommendations. nebulizer for now then transition to inhalers
# Positive troponin he presented with chest tightness.
Troponin is trending down
No chest pain
Continue with aspirin
ECHO without any wall motion abnormality. Hep gtt stopped. Op cards f/u.
Follow-up with cardiology recommendation
# Leukopenia
No fever. Suspect secondary to recent viral illness.
Order differential count
Continue to monitor
resolved
#Hyperlipidemia
-however with AST/ALT elevation hold off on statin.
-diet modification. Pt verbalized understanding
-OP pcp f/u.
Moderate Protein Calorie Malnutrition
- Patient notes significant weight loss - unintentional.
- Suspect pulmonary cachexia.
- Nutrition support.
Legally Blind
Stargardt Disease
- Chronic / Stable.
DVT Prophylaxis: On IV heparin at present
Code Status: Full
d/w with pulmonary
More than 30 minutes spent in discharge including
Final examination of the patient
Summarizing hospital stay
Instructions for continuing care to all relevant caregivers
Preparation of discharge records, prescriptions, and referral forms
Total time spent (in minutes): 52
Anticipated Discharge: Today
Subjective/Interval History
-
Date of Service: June 14, 2024
on room air
states breathing continues to improve on daily basis
Objective Data
-
Labs:
Laboratory Results
06/14/24 06/14/24
06:00 08:30
WBC Cancelled Pending
Hgb Cancelled Pending
Hct Cancelled Pending
Plt Count Cancelled Pending
APTT Cancelled
Sodium Pending
Potassium Pending
Chloride Pending
Carbon Dioxide Pending
BUN Pending
Creatinine Pending
Glucose Pending
Calcium Pending
Total Bilirubin Pending
AST Pending
ALT Pending
Alkaline Phosphatase Pending
Vital Signs:
Vital Signs
Temp Pulse Resp BP Pulse Ox
97.6 F 75 16 114/85 92
06/14/24 07:06 06/14/24 07:18 06/14/24 07:18 06/14/24 07:05 06/14/24 07:18
I&O
06/13/24 06/14/24 06/15/24
06:59 06:59 06:59
Intake Total 250 / 250 240 / 240
Balance 250 / 250 240 / 240
[2024-06-14 09:10] LABS: % Basophils 0.1 % (0-2); % Eosinophils 0.6 % (0-6); % Immature Granulocytes 0.3 % (0-0.5); % Lymphocytes 23.5 % (20.5-51.1); % Monocytes 9.6 % (1.7-9.3); % Neutrophils 65.9 % (42.2-75.2); Absolute Eosinophils 0.1 10^3/uL (0-0.7); Absolute Lymphocytes 2.5 10^3/uL (1.2-3.4); Absolute Neutrophils 7.1 10^3/uL (1.4-6.5); Hematocrit 41.3 % (39.0-52.0); Hemoglobin 13.6 g/dL (13.0-18.0); Mean Corp Hgb Conc. 32.9 g/dL (33.0-37.0); Mean Platelet Volume 9.3 fL (7.4-10.4); Nucleated Red Blood Cells % 0 % (-); Platelet Count 367 10^3/uL (130-400); Red Blood Cell Count 4.86 10^6/uL (4.70-6.10); Red Cell Dist. Width 13.4 % (11.5-14.5); White Blood Cell Count 10.8 10^3/uL (4.8-10.8)
[2024-06-14 09:46] LABS: ALT (SGPT) 184 U/L (0-50); AST (SGOT) 54 U/L (17-59); Albumin 3.7 g/dl (3.5-5.0); Alkaline Phosphatase 97 U/L (38-126); Blood Urea Nitrogen 26 mg/dl (9-20); Calcium 9.4 mg/dl (8.4-10.2); Carbon Dioxide 31 mmol/L (22-30); Chloride 103 mmol/L (98-107); Estimated Creatinine Clearance 58 ml/min; Glucose 94 mg/dl (70-99); Magnesium 2.1 mg/dl (1.6-2.3); Potassium 4.3 mmol/L (3.5-5.1); Sodium 141 mmol/L (135-145); Total Bilirubin 0.8 mg/dl (0.2-1.3); Total Protein 6.2 g/dl (6.3-8.2); eGFR > 60.00
[2024-06-14 11:13] VITALS: BP 133/86
--- NOTE | 2024-06-14 11:21 | W.PN.PUL3 ---
Today's Communication / Plan
-
Transition to prednisone taper as noted.
He will use abltuerol/ipratropium 3-4 times a day instead of inhalers while he recovers
Restart inhalers when clinically recovered.
Completed course of azithro.
Nebulizer was set up by my office and delivered to room
Discharge planning- he feels ok to be dc
Sign off
Assessment
-
#1. Acute COPD exacerbation with severe underlying obstructive airway disease. (FEV1 0.85 Ltr, 23% of predicted during in-office spirometry)
-Continue DuoNeb 4 times daily, as needed albuterol-While in the hospital
- continue Pulmicort twice a day,-while in the hospital
-Start prednisone tomorrow 06/14/2024-40 mg and decrease by 10 mg every 72 hours to off.
-Azithromycin 500 mg completed 3d
-Resume Breztri and as needed albuterol at discharge (this patient in the outpatient setting does not respond to inhalers may consider transition to nebulized regimen)
-My office will set him up with a nebulized machine with DuoNebs as needed. Patient states that he is on a fixed income. Hopefully insurance will cover.
-Outpatient follow-up with pulmonary clinic, currently established with [facility]-has an appointment with Dr. Sandoval in July 2024.
-pending alpha-1 AT, emphysema appears to be out of proportion to reported smoking history and age-pending
-less likely hypercapnic, there is no compensatory metabolic alkalosis
-20 pack year smoking history, quit few years ago
#2. Troponin leak, non-STEMI, type II. Could be related to underlying COPD exacerbation
-Currently chest pain-free
-Cardiology service signed off, echo no significant abnormalities.
-Continuing on aspirin
-Heparin drip has been discontinued
Follow-up as above with pulmonary.
Discharge planning
Data:
CT Chest 05/2024: 1. No evidence of pulmonary embolism.
2. No significant acute abnormality identified in the chest, as described above. Advanced emphysematous change redemonstrated.
6 MWT:� 06/07/24: At rest, O2 96% on room air, heart rate 95. With ambulation, O2 ish 92%, max heart rate 111. 0/10 on dyspnea scale. Ambulated 1800 feet.PFT:�����
In-office Spirometry 06/07/2024: FVC 2.62/55%, FEV1 0.85/23%, ratio 32%, no significant BD response.� Very severe obstruction and suggestive of restrictive pattern
Subjective Data
-
Date of Service:
Date of Service: June 14, 2024
Chief Complaint: Pulmonary Follow Up (Acute exacerbation of COPD)
Subjective:
Patient feels better
Back to baseline
Denies coughing or phlegm production
Denies expiratory wheezing
Review of Systems
General: Fever (n)
Cardiopulmonary: Dyspnea and Dyspnea on Exertion (improved)
Objective Data
Data Reviewed
Vital Signs / I&O / Oxygen:
Vital Signs
Temp Pulse Resp BP Pulse Ox
97.4 F 75 20 114/85 93
06/14/24 11:14 06/14/24 07:18 06/14/24 11:14 06/14/24 07:05 06/14/24 11:14
Intake and Output
06/13/24 06/14/24 06/15/24
06:59 06:59 06:59
Intake Total 250 / 250 240 / 240
Balance 250 / 250 240 / 240
SaO2 93
Physical Exam
General: Comfortable
HEENT: Normocephalic
Cardiovascular: S1-S2
Respiratory: Clear and Non-Labored Respirations (At rest)
GI: Soft and Non Distended
Neurology: Awake, AO x 3 and No Motor Deficits
Skin: Warm
Labs/Micro/Reports
Lab Data
06/14/24 08:47
06/14/24 08:47
Laboratory Results
06/14/24
06:00
APTT Cancelled
Microbiology
06/12/24 00:41 Nasal Swab Influenza Types A & B (JAZMÍN) - Final
Negative for Influenza A & B, NAAT
Negative results must be combined with clinical observations
and patient history.
Nucleic Acid Amplification test (NAAT)performed on the
[employer] platform.
--- NOTE | 2024-06-14 11:47 | CM ---
Chart reviewed. Patient is independent of ADLS, lives with his aunt in a [address], [address], ambulates with a SPC to alert others he is legally blind. Plan is for the patient to return home. CM to follow
--- NOTE | 2024-06-14 12:46 | W.DCSUMMARY ---
Discharge Summary
Discharge Data
Date of Admission: 06/12/24
Date of Discharge: 06/14/24
-
Pending Results: No
Hospital Course
58-year-old male past medical history of vision impairment/legally blind, COPD who was presented complaining of shortness of breath and chest tightness. Patient was started on IV steroids. Chest x-ray and CT chest was obtained without focal
infiltrates or pneumonia. Patient was eval by pulmonary and cardiology. Patient had a follow-up with troponin. Patient was on heparin infusion. Echo without any wall motion abnormality and heparin drip was discontinued. Patient was started on
aspirin. Patient will need outpatient cardiology evaluation and follow-up for ischemic evaluation. Patient breathing significantly improved. Patient completed course of azithromycin. Patient will be maintained on nebulizer treatment and once
patient starts feeling better he will switched back to inhalers per pulmonary. Patient would be transition from IV steroids to slow prednisone taper. Patient will need to follow-up outpatient with cardiology and pulmonary. Patient be discharged
home and he was agreeable and amenable discharge planning to home.
Discharge Plan
-
Patient Disposition: Home (Routine Discharge)
Discharge Diagnosis/Procedures: Acute COPD exacerbation
Leukopenia secondary to upper respiratory viral infection
Nonischemic myocardial injury
Moderate protein caloric malnutrition
Mild transaminitis
Condition: Fair
Diet: Low Cholesterol
Activity: As tolerated
Driving Restrictions: As prior to admission
Blood Work: CMP in 1-2 weeks via primary doctor
Lipid profile in 3 months via primary doctor
Referrals:
Mitch Boswell MD [Active] - in four to six weeks (needs PFT -)
NONE,* [Family Provider] - in less than 1 week
Hermes Gee MD [Active] - None (call to make appointment. )
Prescriptions:
New
aspirin 81 mg Tablet,Chewable
81 mg PO DAILY Qty: 30 0RF
ipratropium-albuterol 0.5 mg-3 mg(2.5 mg base)/3 mL Solution For Nebulization
3 ml inhalation R QID Qty: 90 0RF
prednisone 10 mg Tablet
See Rx Instructions .ROUTE .COMPLEX Qty: 30 0RF
Rx Instructions:
Take By Mouth:
40 mg daily x3 days, 30 mg daily x3 days,
20 mg daily x3 days, 10 mg daily x3 days.
Continued
ibuprofen 200 mg Tablet
200 mg PO Q6HPRN PRN (Reason: mild pain/fever)
Primatene Mist 0.125 mg/actuation Hfa Aerosol Inhaler
1 puff INHALATION R HSPRN PRN (Reason: sob)
albuterol sulfate 90 mcg/actuation Hfa Aerosol Inhaler
2 puff INHALATION .Q4-6HRS PRN (Reason: sob)
Held
Breztri Aerosphere 160-9-4.8 mcg/actuation Hfa Aerosol Inhaler
2 inh INHALATION BID
Hold Instructions: Resume on 06/20/24.
Discharge Orders:
Discharge Patient (As Directed); Ordered 06/14/24
Ordered By: Davie Song
Care Plan Goals
Care Plan Goals:
Problem: Readiness for enhanced knowledge related to diagnosis and treatment plan
Goal: Understand your diagnosis and treatment plan needs, including medications if applicable.
Instructions: Know your diagnosis, underlying causes and treatment plan options, including medications if applicable. Consult with your health care team to learn about your diagnosis and treatment plan, including medications if applicable.
Discharge Date and Time
Print Language: [id number]
== END 2024-06-14 14:23 | disposition home or self-care (01) | DRG 191 ==
LOC: IVU 00:50
PROVIDERS: Internal Medicine; Physician Assistant; ADMITTING PHYSICIAN Hospitalist; ATTENDING PHYSICIAN Hospitalist; CONSULT PHYSICIAN Internal Medicine; EMERGENCY PHYSICIAN Emergency Medicine
DX: J44.1 Chronic obstructive pulmonary disease with (acute) exacerbation (principal); E44.0 Moderate protein-calorie malnutrition; I5A Non-ischemic myocardial injury (non-traumatic); Z68.1 Body mass index [BMI] 19.9 or less, adult; J06.9 Acute upper respiratory infection, unspecified; Z79.899 Other long term (current) drug therapy; J43.9 Emphysema, unspecified; H54.8 Legal blindness, as defined in USA; H35.53 Other dystrophies primarily involving the sensory retina; H35.30 Unspecified macular degeneration; Z87.891 Personal history of nicotine dependence; Z82.49 Family history of ischemic heart disease and other diseases of the circulatory system; E78.5 Hyperlipidemia, unspecified; Z11.52 Encounter for screening for COVID-19
CPT/HCPCS: 71046; 71275; 80048; 80053; 80061; 82103; 82728; 83036; 83540; 83550; 83735; 84439; 84443; 84484; 85004; 85025; 85027; 85730; 87502; 87811; 93005; 93306; 94640; 96374; 96375; 99285; Q9967